=== PATIENT | female | born 1990 | race African-American/Black ===

== ENCOUNTER 2020-12-29 10:16 | Emergency (ER) | payer OTHER, SELFPAY ==
[2020-12-29 10:25] VITALS: BP 129/81; PULSE 72; RESP 16; TEMP 37.3; O2SAT 100
--- NOTE | 2020-12-29 11:09 | ED.FEMALEGU ---
HPI - Female Genitourinary General Chief complaint: Urogenital-Female Stated complaint: Possible Yeast Infection Time Seen by Provider: 12/29/20 11:09 Source: patient Mode of arrival: ambulatory Limitations: no limitations History of Present Illness HPI Narrative: Jeniffer Irvin is a 30 yo female with no PMH [facility] getting Flag[facility] for fungal infection from another provider and now is developing irritation in the vaginal area similar to yeast infection Related Data Allergies Allergy/AdvReac Type Severity Reaction Status Date / Time No Known Allergies Allergy Unverified 02/06/18 19:37 Review of Systems Review of Systems: Narrative: CONSTITUTIONAL: Denies fever, chills, sweats. EYES: Denies visual changes, redness, discharge. ENT: Denies rhinorrhea, congestion, sore throat, otalgia. CARDIOVASCULAR: Denies chest pain, palpitations, edema. RESPIRATORY: Denies dyspnea, wheezing, cough GASTROINTESTINAL: Denies abdominal pain, nausea, vomiting, diarrhea. GENITOURINARY: Denies dysuria, hematuria, abnormal discharge-has vaginal irritation SKIN: Denies rash or itching. NEUROLOGIC: Denies numbness, or focal weakness. PSYCHIATRIC: Denies anxiety or depression. PMFSH Past Medical History Medical History No acute medical problems Family History Family History (Updated 12/29/20 @ 11:10 by Coco Guerra CNP) Other No acute medical problems Social History Social History (Updated 12/29/20 @ 11:10 by Coco Guerra CNP) Smoking status: Never smoker Alcohol intake: current Gender identity (if verbalized by the patient): Female Comments At time of signature, I agree with nursing past medical, surgical, social and family history. There is no relevant family history pertinent to the presenting complaint. Exam Narrative: Exam Narrative: GENERAL: This is a well-nourished, well-developed patient, in mild distress. HEAD: normocephalic, atraumatic. EYES: Sclera clear/white. Vision is grossly intact. EARS: External ears normal, . Hearing grossly intact. NOSE: External nose normal without nasal discharge, nares without redness, no rhinorrhea. THROAT: Mucous membranes moist, NECK: Neck supple, non-tender CARDIOVASCULAR: Regular rate and rhythm without murmurs, gallops, or rubs. RESPIRATORY: Clear to auscultation. Breath sounds equal bilaterally. No wheezes, rales, or rhonchi. GASTROINTESTINAL: Abdomen soft, n SKIN: warm, intact with no suspicious lesions or rash, good texture and turgor. NEURO: awake, alert, and oriented to person, place and time. There were no obvious focal neurologic abnormalities. Steady gait EXTREMITIES: Normal range of motion. BACK: Nontender without deformity Course Course Emergency Course: Patient is on Flagyl about to finish tomorrow and is developing vaginal irritation is requesting something for yeast infection Start on Diflucan 150 mg 1 tomorrow and second tablet followed 3 days if necessary Vital Signs Vital signs: Vital Signs Temperature 99.1 F 12/29/20 10:25 Pulse Rate 72 12/29/20 10:25 Respiratory Rate 16 12/29/20 10:25 Blood Pressure 129/81 12/29/20 10:25 Pulse Oximetry 100 12/29/20 10:25 Temperature 99.1 F 12/29/20 10:25 Pulse Rate 72 12/29/20 10:25 Respiratory Rate 16 12/29/20 10:25 Blood Pressure 129/81 12/29/20 10:25 Pulse Oximetry 100 12/29/20 10:25 MDM - Female Genitourinary Differential Diagnosis Differential diagnosis: Likely bacterial vaginosis, vaginitis, cystitis and other Critical Care Time Critical Care Time Critical Care Time: No Discharge Plan Discharge Clinical Impression: Vaginal yeast infection Patient Disposition: Home, Self-Care Condition: Stable Instructions: Antibiotic Form, Yeast Infection (ED) Prescriptions: New fluconazole [Diflucan] 150 mg tablet 150 mg PO ONCE Qty: 2 RF: 0 Follow-up/Referrals: PHYSICIAN,
== END 2020-12-29 11:18 | disposition home or self-care (01) ==
PROVIDERS: Emergency Provider Nurse Practitioner
DX: B37.3 Candidiasis of vulva and vagina (principal)
CPT/HCPCS: 99213; G0463

== ENCOUNTER 2021-06-04 17:03 | Emergency (ER) | payer OTHER, SELFPAY ==
[2021-06-04 17:08] VITALS: BP 133/61; PULSE 70; RESP 16; TEMP 37.9; O2SAT 100
--- NOTE | 2021-06-04 17:26 | ED.FEMALEGU ---
HPI - Female Genitourinary General Chief complaint: Urogenital-Female Stated complaint: Urinary Problem Time Seen by Provider: 06/04/21 17:05 Source: patient Mode of arrival: ambulatory Limitations: no limitations History of Present Illness HPI Narrative: 30-year-old female presents to urgent care with complaints of urinary frequency and urgency for the past week. Patient reports that she has a history of urinary tract infections and her symptoms feel similar. Patient denies vaginal discharge, abdominal pain, flank pain, fever, bodies, chills, nausea, vomiting, diarrhea or concern for STDs. MD elicited complaint: UTI and other (Urinary urgency and frequency) Onset (ago): week(s) (1) Vaginal discharge: none Vaginal bleeding: none Urinary symptoms: Urgency and Frequency Exacerbating factors: none Relieving factors: none Associated symptoms: denies other symptoms Related Data Allergies Allergy/AdvReac Type Severity Reaction Status Date / Time No Known Allergies Allergy Unverified 06/04/21 17:09 Review of Systems Constitutional: Constitutional: Denies chills and Denies fatigue ENT: Denies sore throat Cardiovascular: Cardiovascular: Denies chest pain Respiratory: Respiratory: Denies cough Gastrointestinal: Gastrointestinal: Denies abdominal pain, Denies constipation, Denies diarrhea, Denies nausea and Denies vomiting Genitourinary: Genitourinary: Denies abnormal vaginal bleeding, Denies hematuria, Reports nocturia, Denies genital lesions, Denies pelvic pain, Denies flank pain, Denies urinary incontinence and Denies vaginal discharge Integumentary/Breasts: Skin/Breast: Denies rash PMFSH Past Medical History Medical History No acute medical problems Family History Family History Other No acute medical problems Social History Social History Smoking status: Never smoker Alcohol intake: current Gender identity (if verbalized by the patient): Female Comments At time of signature, I agree with nursing past medical, surgical, social and family history. There is no relevant family history pertinent to the presenting complaint. Exam Const: General: healthy appearing and no acute distress Orientation/consciousness: patient oriented x3 Neck: Neck: normal visual inspection Resp: Effort & Inspection: normal respiratory effort Auscultation: clear to auscultation bilaterally Cardio: Rate: regular rate Rhythm: regular rhythm GI: Inspection: non-distended GI Palp: Yes Soft to palpation, No Tenderness to palpation present (GI), No Guarding due to palpation present (GI), No Rigid due to palpation and No Rebound tenderness present Auscultation: normal bowel sounds : General: Yes bladder normal to palpation and Yes no CVA tenderness Skin: General skin exam: normal color Rashes: no rashes Neuro: General: patient oriented x3 and moves all extremities Psych: Appearance: grossly normal Mental Status: mental status grossly normal Affect: normal affect Attitude: cooperative Thought content: Yes Normal thought content present Course Vital Signs Vital signs: Vital Signs Temperature 37.9 C H 06/04/21 17:08 Pulse Rate 70 06/04/21 17:08 Respiratory Rate 16 06/04/21 17:08 Blood Pressure 133/61 06/04/21 17:08 Pulse Oximetry 100 06/04/21 17:08 Temperature 37.9 C H 06/04/21 17:08 Pulse Rate 70 06/04/21 17:08 Respiratory Rate 16 06/04/21 17:08 Blood Pressure 133/61 06/04/21 17:08 Pulse Oximetry 100 06/04/21 17:08 MDM - Female Genitourinary MDM Narrative Medical decision making narrative: Urine culture obtained sent to lab. Patient agrees take antibiotics as prescribed. Patient agrees to increase water intake. Patient agrees to proceed to emergency room if symptoms worsen Differential Diagnosis Differential cory
== END 2021-06-04 17:30 | disposition home or self-care (01) ==
PROVIDERS: Emergency Provider Nurse Practitioner Family; PCP Obstetrics & Gynecology
DX: N30.00 Acute cystitis without hematuria (principal)
CPT/HCPCS: 81003; 87086; 87088; 99213; G0463

== ENCOUNTER 2021-06-18 13:57 | Emergency (ER) | payer OTHER, SELFPAY ==
[2021-06-18 14:46] VITALS: BP 132/87; PULSE 105; RESP 14; TEMP 37.6; O2SAT 98
--- NOTE | 2021-06-18 16:42 | ED.URI ---
HPI - URI/Sore Throat General Chief Complaint: Upper Respiratory Infection Stated Complaint: Sore Throat Time Seen by Provider: 06/18/21 16:42 Source: patient, RN notes reviewed and old records reviewed Mode of arrival: ambulatory History of Present Illness HPI Narrative: 30 year old female who presents to [facility] care with complaints of sore throat, cough, chills body aches, fever on . Patient reports that she also had some diarrhea on the which has resolved. Patient states that she went to the ER on and had rapid COVID and Flu test which were both negative. Patient reports that she has been taking Tylenol for her symptoms is feeling a little better but continues with sore throat. Patient has not had COVID or Influenza vaccinations. MD elicited complaint: fever, cough, sore throat and rhinorrhea Treatments prior to arrival: acetaminophen Related Data Home Medications Medication Instructions Recorded Confirmed No Home Medications 06/18/21 06/18/21 Allergies Allergy/AdvReac Type Severity Reaction Status Date / Time No Known Allergies Allergy Verified 06/18/21 15:49 Review of Systems Review of Systems: CONSTITUTIONAL:Positive fever, chills, or sweats. EYES: Denies visual changes, redness, or discharge. ENT:Positive for rhinorrhea, congestion, sore throat, no otalgia. CARDIOVASCULAR: Denies chest pain, palpitations, or edema. RESPIRATORY: Positive for cough no dyspnea. GASTROINTESTINAL: Denies abdominal pain, nausea, vomiting, one episode of diarrhea. GENITOURINARY: Denies dysuria or hematuria. SKIN: Denies rash or itching. MUSCULOSKELETAL: Denies back pain, joint pain, body aches. NEUROLOGIC: Denies headache, numbness, or weakness. PSYCHIATRIC: Denies anxiety or depression. All systems reviewed & are unremarkable except as noted in HPI and below PMFSH Past Medical History Medical History (Updated 06/20/21 @ 09:36 by Norma Salas NP) Hx of migraines Surgical History Surgical History (Updated 06/20/21 @ 09:26 by Norma Salas NP) No history of previous surgery Family History Family History Other No acute medical problems Social History Social History (Updated 06/20/21 @ 09:26 by Norma Salas NP) Smoking status: Never smoker Alcohol intake: current Alcohol use details: social Substance use: never Living arrangements: alone Gender identity (if verbalized by the patient): Female Comments At time of signature, agree with nursing past medical, surgical, social and family history. There is no relevant family history pertinent to the presenting complaint Exam Narrative: GENERAL: Well-appearing, well-nourished, and in no acute distress. HEAD: Normocephalic, atraumatic. EYES: PERRLA and EOMI. ENT: Nares patent with clear rhinorrhea no epistaxis. Mucous membranes moist.TM's normal with good light reflex, throat red with no lesions or exudates no acute tonsil swelling NECK: Supple.no lymphadenopathy CHEST: Clear to auscultation. No respiratory distress.dry cough SAO2 98% on room air HEART: Regular rate and rhythm. No murmur heard. Normal peripheral pulses. ABDOMEN: Soft, nontender, nondistended, normal active bowel sounds. EXTREMITIES: Normal range of motion. No edema. SKIN: Warm, dry, no rash. NEURO: No focal deficits. Alert and oriented x3. Course Vital Signs Vital signs: Vital Signs Temperature 37.6 C H 06/18/21 14:46 Pulse Rate 105 H 06/18/21 14:46 Respiratory Rate 14 06/18/21 14:46 Blood Pressure 132/87 06/18/21 14:46 Pulse Oximetry 98 06/18/21 14:46 Temperature 37.6 C H 06/18/21 14:46 Pulse Rate 105 H 06/18/21 14:46 Respiratory Rate 14 06/18/21 14:46 Blood Pressure 132/87 06/18/21 14:46 Pulse Oximetry 98 06/18/21 14:46 MDM - URI/Sore Throat Differential Diagnosis Differential diagnosis: Likely upper respiratory infection, sinusitis, viral infec
== END 2021-06-18 17:04 | disposition home or self-care (01) ==
PROVIDERS: Emergency Provider Registered Nurse
DX: J02.9 Acute pharyngitis, unspecified (principal)
CPT/HCPCS: 87081; 87880; 99213; G0463

== ENCOUNTER 2021-09-09 13:43 | Emergency (ER) | payer OTHER, SELFPAY ==
[2021-09-09 13:46] VITALS: BP 130/75; PULSE 58; RESP 14; TEMP 36.8; O2SAT 100
--- NOTE | 2021-09-09 13:46 | ED.FEMALEGU ---
HPI - Female Genitourinary General Chief complaint: Urogenital-Female Stated complaint: begining of UTI Time Seen by Provider: 09/09/21 13:47 Source: patient and RN notes reviewed History of Present Illness HPI Narrative: Patient is a 31-year-old female who presents the urgent care with complaints of a possible UTI. Patient states that since the she has had intermittent dysuria, suprapubic pressure, urgency and frequency. Patient has not taken anything [id number] for her symptoms. Denies any blood in the urine, vaginal discharge, back pain, abdominal pain, nausea, vomiting or fever. Patient states she has had some frequent UTIs recently and noticed that it is after her. . Patient has not followed up with the PCP or urologist. No other acute complaints. No acute distress noted. Patient aware of the plan of care. Some parts of this dictation were generated by voice recognition software and may contain typographical and/or grammatical inaccuracies. Related Data Allergies Allergy/AdvReac Type Severity Reaction Status Date / Time No Known Allergies Allergy Verified 09/09/21 13:53 Review of Systems Review of Systems: CONSTITUTIONAL: Denies fever, chills, or sweats. EYES: Denies visual changes, redness, or discharge. ENT: Denies rhinorrhea, congestion, sore throat, or otalgia. CARDIOVASCULAR: Denies chest pain, palpitations, or edema. RESPIRATORY: Denies cough or dyspnea. GASTROINTESTINAL: Denies abdominal pain, nausea, vomiting, or diarrhea. GENITOURINARY: Reports of dysuria, frequency, urgency and suprapubic pressure SKIN: Denies rash or itching. MUSCULOSKELETAL: Denies back pain, joint pain, or myalgia. NEUROLOGIC: Denies headache, numbness, or weakness. All other systems reviewed are negative, except as documented in HPI. [facility] Past Medical History Medical History (Updated 09/09/21 @ 14:08 by JOHN Reynolds) Hx of migraines Surgical History Surgical History (Updated 06/20/21 @ 09:26 by Norma Salas NP) No history of previous surgery Family History Family History Other No acute medical problems Social History Social History (Updated 06/20/21 @ 09:26 by Norma Salas NP) Smoking status: Never smoker Alcohol intake: current Alcohol use details: social Substance use: never Gender identity (if verbalized by the patient): Female Comments At the time of my signature, I reviewed and agree with the nursing past medical, surgical, social, and family history. There is no relevant family history pertinent to the patient complaint. Exam Narrative: GENERAL: This is a well-nourished, well-developed patient, in no apparent distress. HEAD: normocephalic, atraumatic. EYES: PERRL. Sclera clear/white. Vision is grossly intact. EARS: External ears normal NOSE: External nose normal with no obvious nasal discharge, nares without redness, no rhinorrhea. THROAT: Mucous membranes moist, posterior pharynx clear. NECK: Neck supple CARDIOVASCULAR: Regular rate and rhythm without murmurs, gallops, or rubs. RESPIRATORY: Clear to auscultation. Breath sounds equal bilaterally. No wheezes, rales, or rhonchi. GASTROINTESTINAL: Abdomen soft, non-tender, nondistended. SKIN: warm, intact with no suspicious lesions or rash, good texture and turgor. NEURO: awake, alert, and oriented to person, place and time. There were no obvious focal neurologic abnormalities. EXTREMITIES: No clubbing, cyanosis, or edema. BACK: Negative bilateral CVA tenderness Course Course Level of Care: Express Care Visit Vital Signs Vital signs: Vital Signs Temperature 98.2 F 09/09/21 13:46 Pulse Rate 58 L 09/09/21 13:46 Respiratory Rate 14 09/09/21 13:46 Blood Pressure 130/75 09/09/21 13:46 Pulse Oximetry 100 09/09/21 13:46 Temperature 98.2 F 09/09/21 13:46 Pulse Rate 58 L 09/09/21 13:46 Respiratory Rate 14 09/09/21 13:46 Blood P
== END 2021-09-09 14:14 | disposition home or self-care (01) ==
PROVIDERS: Emergency Provider Nurse Practitioner Family
DX: N39.0 Urinary tract infection, site not specified (principal)
CPT/HCPCS: 81003; 87077; 87086; 87186; 99213; G0463

== ENCOUNTER 2021-11-23 18:31 | Emergency (ER) | payer OTHER, SELFPAY ==
--- NOTE | 2021-11-23 18:38 | ED.FEMALEGU ---
HPI - Female Genitourinary General Chief complaint: Urogenital-Female Stated complaint: poss uti Time Seen by Provider: 11/23/21 19:18 Source: patient and RN notes reviewed Mode of arrival: ambulatory Limitations: no limitations History of Present Illness HPI Narrative: 31-year-old female presents with concern for urinary tract infection. Reports she was treated on November 08 for a UTI with her primary care doctor. Reports she took Macrobid, finished antibiotics. Reports symptoms resolved but 2 days ago returned. She reports dysuria, frequency, pressure. She reports she took Azo at 1:00 today. She denies fever, body aches, chills, sweats, back pain, abdominal pain, nausea or vomiting. She denies abnormal vaginal discharge or bleeding. MD elicited complaint: UTI Related Data Allergies Allergy/AdvReac Type Severity Reaction Status Date / Time No Known Allergies Allergy Verified 09/09/21 13:53 Review of Systems Review of Systems: CONSTITUTIONAL: Denies malaise, chills, sweats, or fever. CARDIOVASCULAR: Denies chest pain, palpitations, or edema. RESPIRATORY: Denies cough or dyspnea. GASTROINTESTINAL: Denies abdominal pain, nausea, vomiting, diarrhea GENITOURINARY: Reports dysuria, frequency, urgency, suprapubic pressure. Denies flank pain or hematuria. SKIN: Denies rash or itching. MUSCULOSKELETAL: Denies back pain or myalgia. All systems reviewed & are unremarkable except as noted in HPI and below PMFSH Past Medical History Medical History (Updated 11/23/21 @ 19:24 by Mariel Morales NP) Hx of migraines Surgical History Surgical History (Updated 06/20/21 @ 09:26 by Norma Salas NP) No history of previous surgery Family History Family History Other No acute medical problems Social History Social History (Updated 06/20/21 @ 09:26 by Norma Salas NP) Smoking status: Never smoker Alcohol intake: current Alcohol use details: social Substance use: never Gender identity (if verbalized by the patient): Female Comments At time of signature, agree with nursing past medical, surgical, social and family history. There is no relevant family history pertinent to the presenting complaint Exam Narrative: GENERAL: Well-appearing, well-nourished, and in no acute distress. HEAD: Normocephalic. EYES: PERRLA, conjunctivae clear. NECK: Supple. No lymphadenopathy CHEST: Clear to auscultation. No respiratory distress. HEART: Regular rate and rhythm. ABDOMEN: Soft, nontender upon palpation, nondistended, normal active bowel sounds, no palpable or pulsatile masses, no guarding. No CVA tenderness SKIN: Warm, dry, no rash. NEURO: Alert and oriented x3. PSYCH: Normal mood and affect Course Course Emergency Course: Patient is aware of diagnosis, understands and agrees to treatment plan. Anticipatory guidance given. Patient agrees to follow-up as directed and is aware of reasons to seek care at the emergency department. Portions of this record may have been created with voice recognition software Level of Care: Express Care Visit Vital Signs Vital signs: Reviewed. MDM - Female Genitourinary MDM Narrative Medical decision making narrative: Exam findings and UA show no acute concerns or changes; patient is non-toxic appearing and is in no distress. Patient is appropriate for outpatient treatment and follow-up. Differential Diagnosis Differential diagnosis: Likely urinary tract infection and cystitis Critical Care Time Critical Care Time Critical Care Time: No Discharge Plan Discharge Clinical Impression: Urinary tract infection Patient Disposition: Home, Self-Care Condition: Stable Instructions: Antibiotic Form, Urinary Tract Infection in Women (ED) Additional Instructions: We will send a urine culture to the lab; if the culture identifies an organism that the prescribed antibiotic will not treat, you will receive a phone
[2021-11-23 18:46] VITALS: BP 136/78; PULSE 67; RESP 20; TEMP 36.7; O2SAT 100
== END 2021-11-23 19:30 | disposition home or self-care (01) ==
PROVIDERS: Emergency Provider Nurse Practitioner
DX: N39.0 Urinary tract infection, site not specified (principal)
CPT/HCPCS: 81003; 87077; 87086; 87088; 87186; 99213; G0463

== ENCOUNTER 2022-04-20 18:05 | Emergency (ER) | payer OTHER, SELFPAY ==
[2022-04-20 18:11] VITALS: BP 122/71; PULSE 73; RESP 18; TEMP 36.4; O2SAT 100
--- NOTE | 2022-04-20 18:30 | ED.EYEPROB ---
HPI - Eye Problem General Chief complaint: Eye Problems Stated complaint: Eye Problem Time Seen by Provider: 04/20/22 18:20 Source: patient, RN notes reviewed and old records reviewed Mode of arrival: ambulatory Limitations: no limitations History of Present Illness HPI Narrative: 31 year old female presents to [facility] care with complaints of left eye drainage, redness with irritation, and itchiness of left eye which started today. Patient reports that she does wear contacts but threw the contacts away which were disposable and has been wearing her glasses.Patient denies any sharp pain to her eyes today but it is itchy, denies any change in vision or any sharp pain to her eyes. Patient denies any feelings of sharp pain to her eyes. Patient's visual acuity bilateral eyes 20/25 with glasses. chief complaint: eye redness Onset (ago): day(s) (since this morning) Onset description: gradual Duration: constant Location: left eye Eye Symptoms: redness, itching and discharge Related Data Allergies Allergy/AdvReac Type Severity Reaction Status Date / Time No Known Allergies Allergy Verified 04/20/22 18:40 Review of Systems Review of Systems: CONSTITUTIONAL: Denies fever, chills, or sweats. EYES: Denies visual changes, positive for redness, or discharge and itchy left eye. ENT: Denies rhinorrhea, congestion, sore throat, or otalgia. CARDIOVASCULAR: Denies chest pain, palpitations, or edema. RESPIRATORY: Denies cough or dyspnea. GASTROINTESTINAL: Denies abdominal pain, nausea, vomiting, or diarrhea. GENITOURINARY: Denies dysuria or hematuria. SKIN: Denies rash or itching. MUSCULOSKELETAL: Denies back pain, joint pain, or myalgia. NEUROLOGIC: Denies headache, numbness, or weakness. PSYCHIATRIC: Denies anxiety or depression. All systems reviewed & are unremarkable except as noted in HPI and below PMFSH Past Medical History Medical History (Updated 04/20/22 @ 18:40 by Norma Salas NP) Hx of migraines Surgical History Surgical History (Updated 06/20/21 @ 09:26 by Norma Salas NP) No history of previous surgery Family History Family History Other No acute medical problems Social History Social History (Updated 06/20/21 @ 09:26 by INDIRA Wakefield Smoking status: Never smoker Alcohol intake: current Alcohol use details: social Substance use: never Gender identity (if verbalized by the patient): Female Comments At time of signature, agree with nursing past medical, surgical, social and family history. There is no relevant family history pertinent to the presenting complaint Exam Narrative: GENERAL: Well-appearing, well-nourished, and in no acute distress. HEAD: Normocephalic, atraumatic. EYES: PERRLA and EOMI. Upper and lower eyelids unremarkable. No periorbital cellulitis noted. Sclera and conjunctivae injected left eye ENT: Nares clear, no rhinorrhea or epistaxis. Mucous membranes moist. NECK: Supple.no lymphadenopathy CHEST: Clear to auscultation. No respiratory distress. SAO2 100% on room air. HEART: Regular rate and rhythm. No murmur heard. Normal peripheral pulses. SKIN: Warm, dry, no rash. NEURO: No focal deficits. Alert and oriented x3. Course Course Emergency Course: Patient is aware of diagnosis, understands and agrees to treatment plan. Anticipatory guidance given. Patient agrees to follow-up as directed and is aware of reasons to seek care at the emergency department. Portions of this record may have been created with voice recognition software Level of Care: Express Care Visit Vital Signs Vital signs: Vital Signs Temperature 36.4 C 04/20/22 18:11 Pulse Rate 73 04/20/22 18:11 Respiratory Rate 18 04/20/22 18:11 Blood Pressure 122/71 04/20/22 18:11 Pulse Oximetry 100 04/20/22 18:11 Oxygen Delivery Room Air 04/20/22 18:11 Temperature 36.4 C 04/20/22 18:11 Pulse Rate 73 04/20/22 18:1
== END 2022-04-20 18:45 | disposition home or self-care (01) ==
PROVIDERS: Emergency Provider Registered Nurse; PCP Nurse Practitioner Family
DX: H10.9 Unspecified conjunctivitis (principal)
CPT/HCPCS: 99213; G0463

== ENCOUNTER 2022-07-23 19:04 | Emergency (ER) | payer OTHER, SELFPAY ==
[2022-07-23 19:09] VITALS: BP 136/89; PULSE 76; RESP 20; TEMP 36.9; O2SAT 100
--- NOTE | 2022-07-23 19:20 | ED.FEMALEGU ---
HPI - Female Genitourinary General Chief complaint: Urogenital-Female Stated complaint: poss uti Time Seen by Provider: 07/23/22 19:22 Source: patient and RN notes reviewed Mode of arrival: ambulatory Limitations: no limitations History of Present Illness HPI Narrative: 31 year old female here with one day onset of dysuria and frequency. Says this feels similar to when she has a UTI in the past. Denies blood in the urine, discharge, fever, chills, malaise, or new sexual partners. Denies concerns for STD. LMP 07/08/22. Has been pushing fluids but has not tried any OTC medications. Recently purchased lavender scented toilet paper which she believes has correlated with symptom onset. Related Data Allergies Allergy/AdvReac Type Severity Reaction Status Date / Time No Known Allergies Allergy Verified 04/20/22 18:40 Review of Systems Review of Systems: CONSTITUTIONAL: Denies body aches, fever, chills, or sweats. CARDIOVASCULAR: Denies chest pain, palpitations, or edema. RESPIRATORY: Denies cough or dyspnea. GASTROINTESTINAL: Denies abdominal pain, nausea, vomiting, or diarrhea. GENITOURINARY: Reports dysuria, frequency, urgency. Denies hematuria, pelvic pain, or flank pain SKIN: Denies rash, itching, or wounds. MUSCULOSKELETAL: Denies back pain or myalgia. [facility] Past Medical History Medical History Hx of migraines Surgical History Surgical History No history of previous surgery Family History Family History Other No acute medical problems Social History Social History Smoking status: Never smoker Alcohol intake: current Alcohol use details: social Substance use: never Living arrangements: alone Gender identity (if verbalized by the patient): Female Comments At time of signature, I have reviewed and agree with nursing past medical, surgical, social and family history unless otherwise noted. Please see nursing chart for further information. There is no relevant family history pertinent to the presenting complaint Exam Narrative: GENERAL: Well-appearing and in no acute distress. HEAD: Normocephalic EYES: EOMI. ENT: Mucous membranes pink and moist. NECK: Normal AROM. Supple. CHEST: No respiratory distress. Clear to auscultation. HEART: Regular rate and rhythm. ABDOMEN: Soft, nontender, nondistended, normal active bowel sounds. No CVA tenderness SKIN: Warm, dry, no rash. Course Course Emergency Course: Patient is aware of diagnosis, understands and agrees to treatment plan. Anticipatory guidance given. Patient agrees to follow-up as directed and is aware of reasons to seek care at the emergency department. Portions of this record may have been created with voice recognition software Level of Care: Express Care Visit Vital Signs Vital signs: Vital Signs Temperature 98.5 F 07/23/22 19:09 Pulse Rate 76 07/23/22 19:09 Respiratory Rate 20 07/23/22 19:09 Blood Pressure 136/89 07/23/22 19:09 Pulse Oximetry 100 07/23/22 19:09 Oxygen Delivery Room Air 07/23/22 19:09 Temperature 98.5 F 07/23/22 19:09 Pulse Rate 76 07/23/22 19:09 Respiratory Rate 20 07/23/22 19:09 Blood Pressure 136/89 07/23/22 19:09 Pulse Oximetry 100 07/23/22 19:09 Oxygen Delivery Room Air 07/23/22 19:09 Reviewed MDM - Female Genitourinary MDM Narrative Medical decision making narrative: Reviewed results of urine specimen collection with patient and discussed timeframe to receive culture results. Encouraged increased fluid intake, avoid bladder irritants (scented toilet paper), excessive carbonation or caffeine. Advised supportive measures and signs/symptoms to go to the ER. Pt is appropriate for outpt treatment and f/u. Differential Diagnosis Diff
== END 2022-07-23 19:33 | disposition home or self-care (01) ==
PROVIDERS: Emergency Provider Nurse Practitioner Family; PCP Nurse Practitioner Family
DX: N39.0 Urinary tract infection, site not specified (principal)
CPT/HCPCS: 81003; 87077; 87086; 87186; 99213; G0463

== ENCOUNTER 2022-11-14 18:55 | Emergency (ER) | payer OTHER, SELFPAY ==
[2022-11-14 19:00] VITALS: BP 128/75; PULSE 64; RESP 18; TEMP 36.8; O2SAT 100
--- NOTE | 2022-11-14 19:02 | ED.FEMALEGU ---
HPI - Female Genitourinary General Chief complaint: Urogenital-Female Stated complaint: Vaginal Issue Time Seen by Provider: 11/14/22 19:02 Source: patient, RN notes reviewed and old records reviewed Mode of arrival: ambulatory Limitations: no limitations History of Present Illness HPI Narrative: 32-year-old female presents to the [facility] with itching, burning and thick white discharge yesterday. Has a history of UTIs, BV and yeast infection. States this feels like a yeast infection. No treatment prior to arrival Denies chest pain, abdominal pain. No nausea vomiting or diarrhea. Has no concerns for STDs. No urinary symptoms. Onset (ago): day(s) (1) Related Data Allergies Allergy/AdvReac Type Severity Reaction Status Date / Time No Known Allergies Allergy Verified 11/14/22 19:07 Review of Systems Review of Systems: All systems reviewed & are unremarkable except as noted in HPI and below Constitutional: Constitutional: Reports no additional constitutional complaints Eyes: Eyes: Reports no additional eye complaints ENT: Reports system reviewed and no additional complaints, except as documented Cardiovascular: Cardiovascular: Reports no additional cardiovascular complaints, Denies chest pain and Denies dyspnea Respiratory: Respiratory: Reports no additional respiratory complaints, Denies chest congestion, Denies cough and Denies dyspnea Gastrointestinal: Gastrointestinal: Reports no additional gastrointestinal complaints, Denies abdominal pain, Denies nausea and Denies vomiting Genitourinary: Genitourinary: Reports as per HPI Musculoskeletal: Musculoskeletal: Reports no additional musculoskeletal complaints Integumentary/Breasts: Skin/Breast: Reports system reviewed and no additional complaints, except as docu Neurologic: Reports system reviewed and no additional complaints, except as documented Psychiatric: Psychiatric: Reports no additional psychiatric complaints Allergic/Immunologic: Allergic/Immunologic: Reports no additional allergic/immunologic complaints [facility] Past Medical History Medical History Hx of migraines Surgical History Surgical History No history of previous surgery Family History Family History Other No acute medical problems Social History Social History Smoking status: Never smoker Alcohol intake: current Alcohol use details: social Substance use: never Living arrangements: alone Gender identity (if verbalized by the patient): Female Comments At the time of my signature, I reviewed and agree with the nursing past medical, surgical, social, and family history. There is no relevant family history pertinent to the patient complaint. Exam Const: General: cooperative, healthy appearing, comfortable, no acute distress, well developed, alert and well nourished Nutritional Appearance: well nourished Orientation/consciousness: patient oriented x3 Limitations: no limitations HENMT: Head: normal to inspection Ears: hearing grossly normal bilaterally and external ears normal Face/Nose/Sinus: Normal external nose present, Normal nares present, Normal nasal mucous membranes and turbinates present and normal facial exam Face and sinus: normal facial exam Eyes: General: appearance normal, both eyes and all related structures Alignment and Position: alignment normal Periorbital: periorbital findings normal Pupils: Equal, round and reactive pupils present EOM: EOMs intact bilaterally Neck: Neck: normal visual inspection, full ROM, no lymphadenopathy and no meningeal signs Chest: Chest palpation & inspection: normal inspection of the chest Resp: Effort & Inspection: normal respiratory effort and able to speak in complete sentences Auscultation: clear to ausc
== END 2022-11-14 19:15 | disposition home or self-care (01) ==
PROVIDERS: Emergency Provider Nurse Practitioner; PCP Nurse Practitioner Family
DX: B37.31 Acute candidiasis of vulva and vagina (principal)
CPT/HCPCS: 99213; G0463

== ENCOUNTER 2024-03-04 12:00 | Emergency (ER) | payer OTHER, SELFPAY ==
[2024-03-04 12:06] VITALS: BP 119/75; PULSE 65; RESP 16; TEMP 36.4; O2SAT 100
--- NOTE | 2024-03-04 12:22 | ED.SKABFB ---
HPI - Skin/Abscess/Foreign Bdy General Chief complaint: Skin/Abscess/Foreign Body Stated complaint: Eczema Time Seen by Provider: 03/04/24 12:15 Source: patient, RN notes reviewed and old records reviewed Mode of arrival: ambulatory Limitations: no limitations History of Present Illness HPI narrative: 33-year-old female to Express Care for complaint of rash to bilateral wounds and neck for 1.5 weeks. Patient reports history of eczema and states she is having a flare-up. Patient has attempted to treat at home with Benadryl p.o. and Benadryl cream without relief. Patient reports using prescription steroid creams in the past with successful results. Patient resting comfortably in exam room in no acute distress. Related Data Allergies Allergy/AdvReac Type Severity Reaction Status Date / Time No Known Allergies Allergy Verified 03/04/24 12:11 Review of Systems Review of Systems: All systems reviewed & are unremarkable except as noted in HPI and below Constitutional: Constitutional: Reports no additional constitutional complaints Eyes: Eyes: Reports no additional eye complaints ENT: Reports system reviewed and no additional complaints, except as documented Cardiovascular: Cardiovascular: Reports no additional cardiovascular complaints, Denies chest pain and Denies dyspnea Respiratory: Respiratory: Reports no additional respiratory complaints, Denies cough and Denies dyspnea Musculoskeletal: Musculoskeletal: Reports no additional musculoskeletal complaints Integumentary/Breasts: Skin/Breast: Reports as per HPI and Reports rash ( Bilateral arms, posterior neck) Neurologic: Reports system reviewed and no additional complaints, except as documented Psychiatric: Psychiatric: Reports no additional psychiatric complaints PMFSH Past Medical History Medical History Hx of migraines Surgical History Surgical History No history of previous surgery Family History Family History Other No acute medical problems Social History Social History Smoking status: Never smoker Alcohol intake: current Alcohol use details: social Substance use: never Living arrangements: alone Gender identity (if verbalized by the patient): Female Comments At the time of my signature, I reviewed and agree with the nursing past medical, surgical, social, and family history. There is no relevant family history pertinent to the patient complaint. Exam Const: General: cooperative, healthy appearing, comfortable, no acute distress, alert and well nourished Nutritional Appearance: well nourished Orientation/consciousness: patient oriented x3 Limitations: no limitations HENMT: Head: normal to inspection Ears: external ears normal Face/Nose/Sinus: Normal external nose present, Normal nares present, normal facial exam, No erythema and No edema Face and sinus: normal facial exam, no erythema and no edema Mouth: Yes Normal oral and palatal mucosa present Eyes: General: appearance normal, both eyes and all related structures Neck: Neck: normal visual inspection, full ROM and no meningeal signs Chest: Chest palpation & inspection: normal inspection of the chest Resp: Effort & Inspection: normal respiratory effort and able to speak in complete sentences Cardio: Jugular venous distension: no JVD Back/Spine/Pelvis: Cervical Spine: cervical ROM normal Skin: General skin exam: normal color, turgor normal and rashes Other: dry, erythematous rash to bilateral ACs and posterior neck. Neuro: General: patient oriented x3, gait normal, moves all extremities and no meningeal signs Speech: normal speech Gait exam (Neuro): Normal gait present Extrem: General: normal to inspection, full ROM and c
== END 2024-03-04 12:39 | disposition home or self-care (01) ==
PROVIDERS: Emergency Provider Nurse Practitioner Family
DX: L30.9 Dermatitis, unspecified (principal)
CPT/HCPCS: 99213; G0463

== ENCOUNTER 2024-06-28 11:23 | Emergency (ER) | payer OTHER, SELFPAY ==
[2024-06-28 11:28] VITALS: BP 120/70; PULSE 65; RESP 18; TEMP 36.4; O2SAT 100
--- NOTE | 2024-06-28 11:39 | ED.FEMALEGU ---
HPI - Female Genitourinary General Chief complaint: Urogenital-Female Stated complaint: poss UTI Time Seen by Provider: 06/28/24 11:30 Source: patient, RN notes reviewed and old records reviewed Mode of arrival: ambulatory Limitations: no limitations History of Present Illness HPI Narrative: 33 year old female who presents to [facility] care with complaints of urinary pressure, suprapubic discomfort, urinary frequency, urine noted to be cloudy with blood noted in her urine this morning. Patient reports that she does have history of past urinary tract infections. Patient report that she has no fevers noted, reports no vaginal discharge or any concern for STD's. MD elicited complaint: UTI Pertinent past history: other (past UTI) Onset (ago): day(s) (2) Location of symptoms: suprapubic and urethra Severity scale (1-10): 5 Quality of pain: aching Vaginal discharge: none Vaginal bleeding: none Treatment prior to arrival: none Related Data Allergies Allergy/AdvReac Type Severity Reaction Status Date / Time No Known Allergies Allergy Verified 06/28/24 11:31 Review of Systems Review of Systems: CONSTITUTIONAL: Denies fever, chills, or sweats. CARDIOVASCULAR: Denies chest pain, palpitations, or edema. RESPIRATORY: Denies cough or dyspnea. GASTROINTESTINAL: reports suprapubic abdominal discomfort, no nausea, vomiting, or diarrhea. GENITOURINARY: Reports dysuria, frequency, urgency. Denies flank pain, positive for hematuria. SKIN: Denies rash or itching. MUSCULOSKELETAL: Denies back pain or myalgia. Denies CVA tenderness NEUROLOGIC: Denies headache All systems reviewed & are unremarkable except as noted in HPI and below [facility] Past Medical History Medical History Hx of migraines Surgical History Surgical History No history of previous surgery Family History Family History Other No acute medical problems Social History Social History Smoking status: Never smoker Alcohol intake: current Alcohol use details: social Substance use: never Living arrangements: alone Gender identity (if verbalized by the patient): Female Comments At time of signature, agree with nursing past medical, surgical, social and family history. There is no relevant family history pertinent to the presenting complaint Exam Narrative: GENERAL: Well-appearing, well-nourished, and in no acute distress. HEAD: Normocephalic, atraumatic. NECK: Supple. no lymphadenopathy CHEST: Clear to auscultation. No respiratory distress.SAO2 100% on room air HEART: Regular rate and rhythm. No murmur heard. Normal peripheral pulses. ABDOMEN: Soft, tender lower abdomen, pressure with urination, nondistended, normal active bowel sounds. No CVA tenderness positive for blood in urine EXTREMITIES: Normal range of motion. No edema. SKIN: Warm, dry, no rash. NEURO: No focal deficits. Alert and oriented x3. Course Course Emergency Course: Patient is aware of diagnosis, understands and agrees to treatment plan.? Anticipatory guidance given.? Patient agrees to follow-up as directed and is aware of reasons to seek care at the emergency department. Portions of this record may have been created with voice recognition software Level of Care: Express Care Visit Vital Signs Vital signs: Vital Signs Temperature 36.4 C L 06/28/24 11:28 Pulse Rate 65 06/28/24 11:28 Respiratory Rate 18 06/28/24 11:28 Blood Pressure 120/70 06/28/24 11:28 Pulse Oximetry 100 06/28/24 11:28 Oxygen Delivery Room Air 06/28/24 11:28 Temperature 36.4 C L 06/28/24 11:28 Pulse Rate 65 06/28/24 11:28 Respiratory Rate 18 06/28/24 11:28 Blood Pressure 120/70 06/28/24 11:28 Pulse Oximetry 100 06/28/24 11:28 Oxygen Delivery Room Air 06/28/24 11:28 MDM - Female Genitourinary MDM Narrative Medical decision making narrative: Exam findings and UA show no acute concerns or changes; patient is non-toxic appearing and is in no distress.? Patient is appropriate for outpatient treatment and follow-up. Differential Diagnosis Differential diagnosis: Likely urinary tract infection and cystitis Medical Records Attestation: I reviewed the patient's medical records. Lab Data Attestation: I reviewed the patient's lab results. Lab results narrative: urine dip: A glucose negative, bilirubin negative, ketone negative, specific gravity greater than or equal to 1.030, blood 3+, pH 6.0. Protein 2+. Urobilinogen 0.2, nitrate negative, leukocyte 2+ Critical Care Time Critical Care Time Critical Care Time: No Discharge Plan Discharge Clinical Impression: UTI (urinary tract infection) Qualifiers: Urinary tract infection type: site unspecified Hematuria presence: with hematuria Qualified Code(s): N39.0 - Urinary tract infection, site not specified Patient Disposition: Home, Self-Care Condition: Stable Instructions: Antibiotic Form, Urinary Tract Infection in Women (ED) Additional Instructions: Increase fluids especially cranberry juice and water Avoid caffeine and carbonated beverages Antibiotic as directed Tylenol/ibuprofen for pain or fever Follow-up with her primary care provider if further problems or concerns Recheck if you have fever over 101, nausea and vomiting. If your symptoms persist, change or worsen significantly before you can contact your personal physician then please, without delay, go to the emergency department for further evaluation. Follow-up with PCP in 7-10 days or sooner if needed Patient Language: Upper Sorbian Prescriptions: New nitrofurantoin monohyd/m-cryst [Macrobid] 100 mg capsule 100 mg PO Q12H 7 Days Qty: 14 0RF Rx Instructions: must administer with a meal/food Follow-up/Referrals: PHYSICIAN NOT ON STAFF,NONSTAFF [Primary Care Provider] - Time of Disposition: 11:56 Quality John Coma Scale Eyes: Open Verbal: Oriented and Alert Motor: Follows Commands [place] Coma Total Score: 15
[2024-06-28 11:46] LABS: EDUAAPPEAR Cloudy; EDUABILI Negative (Negative); EDUABLOOD 3+ (Negative); EDUACOLOR1 Yellow; EDUAGLUCOSE Negative (Negative); EDUAKETONE Negative (Negative); EDUALEUKO 2+ (Negative); EDUANITRATE Negative (Negative); EDUAPROTEIN 2+ (Negative); EDUAUROBILI 0.2
== END 2024-06-28 12:00 | disposition home or self-care (01) ==
PROVIDERS: Emergency Provider Registered Nurse
DX: N39.0 Urinary tract infection, site not specified (principal)
CPT/HCPCS: 81003; 87086; 99213; G0463

== ENCOUNTER 2025-04-03 18:03 | Emergency (ER) | payer OTHER, SELFPAY ==
--- OUTSIDE RECORDS SUMMARY | 2024-09-17 04:00 | XMS_ITS ---
Author Organization [facility] Address [address] [place] [address] Care Team Providers Care Chief Orthoptist Name Role Phone Migration, Provider Unavailable Unavailable REASON FOR VISIT EMR-Sánchez Encounters Encounter Location Date Provider Diagnosis [facility] [place] [address] [place] [id number] 09/17/2024 Prov ider Migration Plan Of Treatment No Information Progress Notes * LUCINA QUEVEDODOB:1990 (34 yo Other)Acc No.[id number]:09/17/2024 Patient: Azael BUSTAMANTE LUCINA :1990 A ge:34 Y S ex:Unknown Address:[address], [place], [address] Subjective: * Chief Complaints: * E MR-Sánchez * * Date:
--- OUTSIDE RECORDS SUMMARY | 2024-09-18 04:00 | XMS_ITS ---
Author Organization [facility] Address [address] [place] [address] Care Team Providers Care Machine Turner Name Role Phone Migration, Provider Unavailable Unavailable REASON FOR VISIT EMR-Sánchez Encounters Encounter Location Date Provider Diagnosis [facility] [address] [place] [id number] 09/18/2024 Prov ider Migration Plan Of Treatment No Information Progress Notes * LUCINA QUEVEDODOB:1990 (34 yo Other)Acc No.[id number]:09/18/2024 Patient: Azael BUSTAMANTE LUCINA :1990 A ge:34 Y S ex:Unknown Address:[address], [place], [id number] Subjective: * Chief Complaints: * E MR-Sánchez * * Date:
--- OUTSIDE RECORDS SUMMARY | 2025-04-03 18:06 | XMS_ITS | Clinical Summary ---
Author Organization [facility] Address [address] [place] [address] Phone Care Team Providers Care Car Spotter Name Role Phone Deedee Davila NP Unavailable [phone] Brad Coronado MD Primary Care Provide r Sandhya Stephen MD Unavailable [phone] Allergies No known active allergies Medications pen needle, diabetic (UltiCare Pen Needle) 29 gauge x 1/2 needleIndications :Class 1 obesity due to excess calories without serious comorbidity with body mass index (BMI) of 33.0 to 33.9 in adult,Encounter for weight management Use daily 90 each 06/19/2023 Active Active Problems Problem Noted Date Diagnosed Date Encounter for weight management 06/22/2023 Class 1 obesity due to exces s calories without serious comorbidity with body mass index (BMI) of 33.0 to 33.9 in adult 06/19/2023 Assessment & Plan (06/22/2023 7:02 PM MILITARY TECHNOLOGY MANAGER): Wt Readings from Last 3 Encounters: 06/19/23 86.5 kg (190 lb 12.8 oz) 10/30/21 77.6 kg (171 lb) 06/17/21 75.8 kg (167 lb) Education on diet and exercise counseling provided at today's visit Anxiety and depression 01/18/2020 Low grade squamous intraepit h lesion on cytologic smear cervix (lgsil) 02/22/2019 Overview (02/22/2019): 01/06/19 - during - followed by [facility] - Jenn Antunez HAYDER - Dysmenorrhea 09/30/2017 Assessment & Plan (09/30/2017 3:59 PM CDT): Will have her stop her control pills. Counseled on using back up control such as condoms. Stay off control for a month and then may restart new pack. Encouraged to call heel shaper for evaluation. Will check CBC today Migraine without status migrainosus, not intract able 03/28/2016 Assessment & Plan (06/17/2021 11:30 AM MILITARY TECHNOLOGY MANAGER): Added metoprolol daily for migraine prevention, rizatriptan added for acute migraine symptoms. Follow-up appointment scheduled with PCP Dr. Coronado Manage your symptoms: Rest in a dark, quiet room. This will help decrease your pain. Sleep may also help relieve the pain. Apply ice to decrease pain. Use an ice pack, or put crushed ice in a plastic bag. Cover the ice pack with a towel and place it on your head where it hurts for 15 to 20 minutes every hour. Apply heat to decrease pain and muscle spasms. Use a small towel dampened with warm water or a heating pad, or sit in a warm bath. Apply heat on the area for 20 to 30 minutes every 2 hours. You may alternate heat and ice. Keep a migraine record. Write down when your migraines start and stop. Include your symptoms and what you were doing when a migraine began. Record what you ate or drank for 24 hours before the migraine started. Keep track of what you did to treat your migraine and if it worked. Follow up with your healthcare provider as directed: Bring your migraine record with you. Write down your questions so you remember to ask them during your visits. Prevent another migraine headache: Do not smoke. Nicotine and other chemicals in cigarettes and cigars can trigger a migraine and also cause lung damage. Ask your healthcare provider for information if you currently smoke and need help to quit. E-cigarettes or smokeless tobacco still contain nicotine. Talk to your healthcare provider before you use these products. Do not drink alcohol. Alcohol can trigger a migraine. It can also interfere with the medicines used to treat your migraine. Exercise regularly. Ask about the best exercise plan for you. Manage stress. Stress may trigger a migraine. Learn new ways to relax, such as deep breathing. Follow a sleep schedule. Go to bed and get up at the same time each day. Eat a variety of healthy foods. Healthy foods include fruit, vegetables, whole- grain breads, low-fat dairy products, beans, lean meats, and fish. Do not have foods or drinks that trigger your migraines. Shift work sleep disorder 03/28/2016 Resolved Problems Problem Noted Date Diagnosed Date Resolved Date Rash of face 07/31/2018 11/02/2018 Assessment & Plan (07/31/2018 2:56 PM MILITARY TECHNOLOGY MANAGER): Complete the prednisone as directed You may use Benadryl or Zyrtec for itching You can use an OTC hydrocortisone cream to soothe your skin topically Keep your skin cool & wear loose clothing to avoid becoming hot, which could increase the itching. If your rash is not getting better after finishing the steroids, please RTC or follow up w PCP If your symptoms worsen- go to ER Weight gain 06/29/2018 11/02/2018 Assessment & Plan (06/30/2018 9:05 PM MILITARY TECHNOLOGY MANAGER): Her believe some of this is water weight with her period. I gave her hydrochlorothiazide to take 3-5 days around her period. For bloating. Overweight (BMI 25.0-29.9) 02/05/2018 0 11/02/2018 Assessment & Plan (02/05/2018 5:47 PM CDT): BMI Follow-up includes: nutrition counseling and exercise counseling . She may continue the phentermine another 2 months. I then asked her to return for follow-up. Patient voiced understanding Of plan Of care and follow-up I checked their [place] [employer] sheet, and it was consistent with prescribed medications. PTSD (post-traumatic stress disorder) 08/19/2017 11/02/2018 Assessment & Plan (09/10/2017 3:54 PM CDT): Much improved. She is going to follow through with counseling. f/u prn Assessment & Plan (08/19/2017 1:57 PM MILITARY TECHNOLOGY MANAGER): Psychological condition is newly identified. Medication changes per orders. Referral to psychological counseling. Psychological condition will be reassessed at the next regular appointment. Lorazepam to take as needed for anxiety. Referred to counseling Obesity (BMI 30.0-34.9) 11/21/201610/20 Assessment & Plan (06/30/2018 9:06 PM MILITARY TECHNOLOGY MANAGER): BMI Follow-up includes: nutrition counseling She has been to managing manager.. She is due for labs. Will check insulin level and TSH as well as CMP and lipid panel Assessment & Plan (10/14/2017 3:42 PM CDT): BMI Follow-up includes: nutrition counseling, exercise counseling and education provided Will start phentermine. Have her f/u in 1 month for weight check and blood pressure check. . Assessment & Plan (07/06/2017 8:37 AM MILITARY TECHNOLOGY MANAGER): Obesity is worsening. Discussed the patient's BMI. The BMI is above average; BMI management plan is completed. Referred to managing manager. Discussed other problems such as weight watchers and medical weight loss facilities. Discussed contrave and how it works and directed to website for additional information/ patient assistance. F/u 2 months for recheck CD (contact dermatitis) 11/14/201609/20 Overview (11/21/2016): Contact dermatitis, unspecified contact dermatitis type, unspecified trigger Immunizations Immunization Administration Dates Next Due Influenza, Quadrivalent, Spl it, Preservative Free, Intramuscular 03/09/2019,07/06/2017,03/28/2016,03/28 Influenza, Unspecified 07/09/2022(Deferr ed: Patient Refused),04/04/2022(Deferred: Patient Refused),03/25/2022(Deferred: Patient Refused),06/17/2021(Deferred: Patient Refused),06/17/2021(Deferred: Patient Refused),04/29/2021(Deferred: Patient Refused),03/04/2021(Deferred: Patient Refused),02/23/2021(Deferred: Patient Refused),03/22/2018 Tdap 11/20/2021,11/05/2021,03/05/2019 Surgical History Surgery Date Site/Laterality Comments D&C FIRST TRIMESTER / TX INC OMPLETE / MISSED / SEPTIC / INDUCED 02/10/2019 Medical History Medical History Date Comments Hx Other Medical Headache, migra ine Anxiety Headache Rash of face 07/31/2018 Weight gain 06/29/2018 PTSD (post-traumatic stress disorder) 08/19/2017 Overweight (BMI 25.0-29.9) 02/05/2018 Obesity (BMI 30.0-34.9) 11/21/2016 Miscarriage 01/26/2019 Anxiety and depression 01/18/2020 Migraines Class 1 obesity due to exces s calories without serious comorbidity with body mass index (BMI) of 33.0 to 33.9 in adult 06/19/2023 Social History Tobacco Use Types Packs/Day Years Used Date Smoking Tobacco: Never Smokeless Tobacco: Never Tobacco Cessation:Counseling Given: No Alcohol Use Standard Drinks/Week Comments No 0 (1 standard drink = 0.6 oz pur e alcohol) PHQ-2 Answer Date Recorded PHQ-2 Total Score (If total score is 3 or more points, staff should administer the PHQ-9) 0 06/19/2023 Comments No Sex and Gender Information Value Date Recorded Sex Assigned at Not on file Legal Sex Female 11:04 AM MILITARY TECHNOLOGY MANAGER Gender Identity Female 10/21/2021 9:21 AM CDT Sexual Orientation Not on file Obstetrics History Para Term AB IAB SAB Ectopic Multiple Livin g Live Births 1 Date Outcome GA Total Labor Labor/2nd/3rd Weight Sex Type Anes PTL Magda A1 A5 Name Clin Last Filed Vital Signs Vital Sign Reading Time Taken Comments Blood Pressure 121/77 06/19/2023 10:57 AM MILITARY TECHNOLOGY MANAGER Pulse 62 06/19/2023 10:57 AM MILITARY TECHNOLOGY MANAGER Temperature 37 C (98.6 F) 06/19/2023 10:57 AM MILITARY TECHNOLOGY MANAGER Respiratory Rate 18 06/19/2023 10:5 7 AM MILITARY TECHNOLOGY MANAGER Oxygen Saturation 100% 06/19/2023 10: 57 AM MILITARY TECHNOLOGY MANAGER Inhaled Oxygen Concentration - - Weight 86.5 kg (190 lb 12.8 oz) 023 10:57 AM MILITARY TECHNOLOGY MANAGER Height 160 cm (5' 3) 06/19/2023 10:57 AM MILITARY TECHNOLOGY MANAGER Body Mass Index 33.8 06/19/2023 10:57 AM MILITARY TECHNOLOGY MANAGER Plan of Treatment Health Maintenance Due Date Last Done Comments Hepatitis C Screening 1990 Varicella Vaccines (1 of 2 - 13+ 2-dose series) 09/07/2003 Hepatitis B Screening 2008 HPV Vaccines (1 - 3-dose SCDM series) 2017 Cervical Cancer Screening 01/07/2020 01/06/2019 Regular Well Visit/Exam 18-64 01/03/2022 01/03/2021, 01/18/2020, 01/17/2019 Depression Screening 06/19/2024 06/19/2023, 10/30/2021, 06/17/2021, Additional history exists Influenza Vaccine (#1) 2025 9, 03/22/2018, 07/06/2017, Additional history exists DTaP/Tdap/Td Vaccine (4 - Td or Tdap) 11/21/2031 11/20/2021, 11/05/2021, 03/05/2019 Pneumococcal vaccine <65 Aged Out No longer eligible based on patient's age to complete this topic Procedures Procedure Name Priority Date/Time Associated Diagnosis Comments PAP SMEAR Routine 01/06/2019 from Last 3 Months or Most Recently Relevant to Health Maintenance Results * PAP SMEAR (01/06/2019) Pap smear Abnormal Historical Provider HEALTH MAINTENANCE Final Result from Last 3 Months or Most Recently Relevant to Health Maintenance Insurance [facility] [id number] Care Teams Car Spotter Relationship Specialty [place] [address] [address] PCP - General Family Medicine 04/15/19 Deedee Davila NP Family Medicine 11/02/18 [place] [address] [address] Consulting Physician Obstetrics and Gynecology 01/03/21
--- OUTSIDE RECORDS SUMMARY | 2025-04-03 18:07 | XMS_ITS | Clinical Summary ---
Author Organization [facility] Address [address] [place] [address] Phone Care Team Providers Care Double Head Machine Operator Name Role Phone Juliana, Sofyabrielle Sanchez APRN, ELECTRIC DISTRIBUTION CHECKER Primary Care Provider Bertha Das APRN, CONSTRUCTION FRAMER Unavailable [phone] Allergies No known active allergies Medications ondansetron (ZOFRAN-ODT) 4 MG TABLET DISPERSIBLEIndicati ons:Viral gastroenteritis Take 1 Tablet by mouth every 8 hours as needed for Nausea - 1st line. 10 Tablet 5 Active Atogepant (Qulipta) 60 MG TabletIndications:M igraine Take 1 Tablet by mouth nightly. Indications: Migraine Headache 30 Tablet 5 5 Active Ubrogepant (Ubrelvy) 100 MG TabletIndications:M igraine Take 1 tablet as needed for migraine. May repeat dose in 2 hours if needed. 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 Resolved Problems Problem Noted Date Diagnosed Date Resolved Date Over weight 03/28/2016 11/21/2016 Immunizations Immunization Administration Dates Next Due PUR FLU 3+ YRS PRES FREE QUAD IM 03/28/2016 TDAP Vaccine 11/05/2021 Social History Tobacco Use Types Packs/Day Years Used Date Smoking Tobacco: Never Smokeless Tobacco: Never Tobacco Cessation:Counseling Given: Not Answered Alcohol Use Standard Drinks/Week Comments Yes 0 (1 standard drink = 0.6 oz pur e alcohol) occasional Comments No Sex and Gender Information Value Date Recorded Sex Assigned at Not on file Legal Sex Female 9:18 PM CDT Gender Identity Not on file Sexual Orientation Not on file Last Filed Vital Signs Vital Sign Reading Time Taken Comments Blood Pressure 122/80 12/15/2024 10:27 AM CDT Pulse 86 12/15/2024 10:27 AM CDT Temperature 36.4 C (97.5 F) 12/15/2024 10:27 AM CDT Respiratory Rate 17 12/15/2024 10:27 AM CDT Oxygen Saturation 98% 12/15/2024 10:27 AM CDT Inhaled Oxygen Concentration - - Weight 77.7 kg (171 lb 6.4 oz) 12/15/2024 10:27 AM CDT Height 160 cm (5' 3) 12/15/2024 10:27 AM CDT Body Mass Index 30.36 12/15/2024 10:27 AM CDT Plan of Treatment Upcoming Encounters Date Type Department Care Team (Late st Contact Info) Description 06/19/2025 10:30 AM DOPE EDGER Office Visit [facility] - Neurology - [address] [place] [address] Bertha Das APRN, CONSTRUCTION FRAMER [address] [place] [address] Health Maintenance Due Date Last Done Comments Hepatitis C Virus (HCV) Screening 1990 Hepatitis B Immunization (1 of 3 - 19+ 3-dose series) 2009 Pap Smear 09/07/2011 Human Papillomavirus (HPV) Immunization (1 - 3-dose SCDM series) 2017 Cervical Cancer Screening (CCS) 2020 HPV/Cotest 2020 Influenza Immunization (#1) 02/20/202502/20, 03/22/2018, 07/06/2017, Additional history exists SARS-COV-2 Immunization ( season) 2025 Td Immunization Every 10 Years (Adults With 1 Tdap) 11/21/2031 11/20/2021, 11/05/2021, 03/05/2019 Respiratory Syncytial Virus (RSV) Immunization (Adult) (1 - 1-dose 75+ series) 2065 Meningococcal Immunization (ACWY) Aged Out No longer eligible based on patient's age to complete this topic Pneumococcal Immunization Combined Aged Out No longer eligible based on patient's age to complete this topic Rotavirus Immunization Aged Out No lo nger eligible based on patient's age to complete this topic Insurance [facility] Care Teams Double Head Machine Operator Relationship Specialty Start Date End Date Sofya Andrews APRN, ELECTRIC DISTRIBUTION CHECKER [address] [place] [address] PCP - General Advanced Practice Nurse 11/18/22 Bertha Das APRN, CONSTRUCTION FRAMER [address] [place] [address] Nurse Practitioner Advanced Practice Nurse 01/15/23
--- OUTSIDE RECORDS SUMMARY | 2025-04-03 18:07 | XMS_ITS | Clinical Summary ---
Author Organization [facility] [employer] Address [address] [place] [address] Care Team Providers Care Production Administrator Name Role Phone Unavailable Primary Care Provider Unavailabl e Source Comments [facility] [employer],non-owned Affiliates and Associated Physician Practices is amultiple site organization consisting of ambulatory clinics and hospital sitesin [place], [place], [place] and [place]. This disclosure is being madepursuant to the Care Everywhere program and may not contain all information available regarding this patient. Last updated 18.[employer] Allergies No known active allergies Medications * Be aware that medications may not be up to date on this document. Alwaysverify current medications with the patient. trimethoprim-po lymyxin B (POLYTRIM) 80741-3.1 UNIT/ML-% ophthalmic solution Instill 1 Drop into right eye every 3 hours 10 mL 0 01/29/2015 Active Social History Tobacco Use Types Packs/Day Years Used Date Smoking Tobacco: Never Smokeless Tobacco: Never Alcohol Use Standard Drinks/Week Comments Yes 0 (1 standard drink = 0.6 oz pur e alcohol) occ Comments No Sex and Gender Information Value Date Recorded Sex Assigned at Not on file Legal Sex Female 9:00 AM CELEBRITY MANAGER Gender Identity Not on file Sexual Orientation Not on file Last Filed Vital Signs Vital Sign Reading Time Taken Comments Blood Pressure 102/64 01/29/2015 1:41 PM CDT Pulse 79 01/29/2015 1:41 PM CDT Temperature 37 C (98.6 F) 01/29/2015 1:41 PM CDT Respiratory Rate 18 01/29/2015 1:41 PM CDT Oxygen Saturation 99% 01/29/2015 1:41 PM CDT Inhaled Oxygen Concentration - - Weight 69.4 kg (153 lb 1.6 oz) 01/29/2015 1:41 P M CDT Height 162.6 cm (5' 4) 01/29/2015 1:41 PM CDT Body Mass Index 26.28 01/29/2015 1:41 PM CDT Plan of Treatment Health Maintenance Due Date Last Done Comments HIV SCREENING 2005 HEPATITIS C SCREENING 09/01/2008 DTAP/TDAP/TD VACCINES (1 - Tdap) 2009 HEPATITIS B VACCINE (1 of 3 - 19+ 3-dose series) 2009 HPV VACCINE (1 - 3-dose SCDM series) 2017 DEPRESSION SCREENING 06/22/2024 COVID-19 VACCINE ( - 2023-2 5 season) 2025 INFLUENZA VACCINE (#1) 2025 8, 03/28/2016 ZOSTER VACCINE (1 of 2) 2040 HIB VACCINE Aged Out No longer eligi ble based on patient's age to complete this topic MENINGOCOCCAL (Group B) VACCINE SHARED DECISION-MAKING Aged Out No longer eligible based on patient's age to complete this topic MENINGOCOCCAL GROUPS A/C/Y/W VACCINE Aged Out No longer eligible b ased on patient's age to complete this topic PNEUMOCOCCAL VACCINE Aged Out No long er eligible based on patient's age to complete this topic Insurance [place] [employer] [facility] Address: [facility] [id number] [place] [phone]
--- OUTSIDE RECORDS SUMMARY | 2025-04-03 18:07 | XMS_ITS | Data Portability ---
Author Organization [facility] Sarah Bronson Address [address] [place] [address] Care Team Providers Care Rubber Down Name Role Phone [email or web address] Primary Care Provider [phone] Assessment Encounter Date Assessment Date Assessment LastModified by Organization Details LastModified Time 11/20/2023 11/20/2023 Pt's case was discussed w/resident. Documentation was reviewed,and I agree w/resident's note. Dr. Best [email or web address] Not available 11/21/2023 15:01:41 Plan of Treatment Reminders Order Date Submit Date Provider Last Modified By Organization Details Last Modified Time Details Appointments None recorded . Lab vaginal pathogen s panel, LELA+prob e, vaginal fluid 2024 025 [place], [address], [place], [address], 5 07:08:50 mycoplas ma genitali um DNA, qualitat marvin, PCR 2024 025 [place] [facility], [address], [address], [place], [address], 5 07:08:52 HIV 1 + 2, meaningf ul use set 2023 024 [place] [facility], [address], [address], [place], [address], 4 13:09:16 RPR (rapid plasma reagin), serum 2023 024 [facility], [address], [address], [place], [address], 4 13:09:15 HBsAg (hepatit is B surface Ag), EIA, serum 2023 024 [facility], [address], [address], [place], [address], 4 13:09:14 vaginal pathogen s panel, LELA+prob e, vaginal fluid 2023 024 [facility], [address], [address], [place], [address], 4 20:08:26 Hepatiti s C IgG Ab, qual, serum 2023 024 [facility], [address], [address], [place], [address], 4 13:09:13 vaginal pathogen s panel, LELA+prob e, vaginal fluid 2023 024 [facility], [address], [address], [place], [address], 4 16:13:38 Referral None recorded . Procedures None recorded . Surgeries None recorded . Imaging None recorded . Medication Orders Diflucan 150 mg tablet 2024 025 [facility] #[id number], [address], [place], [id number], 5 11:01:12 metronid azole 500 mg tablet 2024 025 [facility] #[id number], [address], [place], [id number], 5 11:01:[address] Menstrua l 500 mg-60 mg-15 mg tablet 2023 025 [facility], [address], [place], [id number], 11:12:18 metronid azole 500 mg tablet 2023 024 [id number], [address], [place], [id number], 14:00:31 fluconaz ole 150 mg tablet 2023 024 [id number], [address], [place], [id number], 11:11:37 Patient TargetsNo targets recorded. Patient Instructions Encounter Date Encounter Id Patient Instructions Last Modified By Organization Details Last Modified Time 11/20/2023 [id number] A healthy lifestyle: care instructions Not available 11/20/2023 14:02:08 abnormal Pap test: care instructions Not available 11/20/2023 14:52:11 colposcopy: before your procedure Not available 11/20/2023 14:52:11 01/21/2024 [id number] painful menstrua l cramps: care instructions [email or web address] Not available 01/21/2024 10:39:53 07/14/2024 [id number] Plan of care has been discussed with patient including expected therapeutic benefits and potential side effects of prescribed medication and treatments. Patient verbalizes understanding and is in agreement with the plan of care. Patient was instructed to keep all scheduled appointments and contact the clinic for any additional problems. [email or web address] Not available 08/17/2024 14:26:35 Reason for Referral None Reported. Results Created Date Observation Date Name Description Value Unit Range Abnormal Flag Note LastModifiedBy Organization Detail LastModifiedTime 09/16/19 24 09/17/2023 NUSWA B VAGIN ITIS PLUS (VG+) atopobium vaginae Low - 0 score Not Available [facility] ([facility]) [address] [facility], [place], [address], 09/18/2023 16:13:38 09/16/19 24 09/17/2023 NUA B VAGIN ITIS PLUS (VG+) bvab 2 Low - 0 score Not Available [facility] ([facility]) [address] [facility], [place], [address], 09/18/2023 16:13:38 09/16/19 24 09/17/2023 NUA B VAGIN ITIS PLUS (VG+) megasphaera 1 Low - 0 score Calcu late total score by enrico g the 3 indiv idual bacte rial vagin osis (BV) marke r score s toget her. Total score is inter prete d as follo ws: Total score 0-1: Indic ates the absen ce of BV. Total score 2: Indet ermin ate for BV. Addit ional clini rizwana data shoul d be evalu ated to estab dale a diagn osis. Total score 3-6: Indic ates the prese nce of BV. This test was devel oped and its perfo rmanc e malka cteri stics deter mined by [facility]. It has not been clear ed or appro candida by the Food and Drug Admin istra tion. Not Available [facility] ([facility]) [address] [facility], [place], [address], 09/18/2023 16:13:38 09/16/19 24 09/18/2023 NUA B VAGIN ITIS PLUS (VG+) john albicans, LELA Positi ve negati ve abnormal Not Available [facility] ([facility]) [address] [facility], [place], [address], 09/18/2023 16:13:38 09/16/19 24 09/18/2023 NUA B VAGIN ITIS PLUS (VG+) john glabrata, LELA Negati ve negati ve Not Available [facility] ([facility]) [address] [facility], [place], [address], 09/18/2023 16:13:38 09/16/19 24 09/18/2023 NUA B VAGIN ITIS PLUS (VG+) trich vag by LELA Negati ve negati ve Not Available [facility] ([facility]) [address] [facility], [place], [address], 09/18/2023 16:13:38 09/16/19 24 09/18/2023 NUA B VAGIN ITIS PLUS (VG+) chlamydia trachomatis, LELA Negati ve negati ve Not Available [facility] ([facility]) [address] [facility], [place], [address], 09/18/2023 16:13:38 09/16/19 24 09/18/2023 NUA B VAGIN ITIS PLUS (VG+) neisseria gonorrhoeae, LELA Negati ve negati ve Not Available [facility] ([facility]) [address] [facility], [place], [address], 09/18/2023 16:13:38 11/20/19 24 11/21/2023 HCV ANTIB MATEUSZ hep C virus Ab NON REACTI VE nonrea ctive HCV antib mateusz alone does not diffe renti ate betwe en previ ously resol candida infec tion and activ e infec tion. Equiv ocal and React marvin HCV antib mateusz resul ts shoul d be follo wed up with an HCV RNA test to suppo rt the diagn osis of activ e HCV infec tion. Not Available [facility] ([facility]) [address] [facility], [place], [address], 11/21/2023 13:09:13 11/20/19 24 11/21/2023 HBSAG SCREE N HBsAg screen NEGATI VE negati ve Not Available [facility] ([facility]) [address] [facility], [place], [address], 11/21/2023 13:09:14 11/20/19 24 11/21/2023 RPR, RFX QN RPR/C ONFIR M TP RPR NON REACTI VE nonrea ctive Not Available [facility] ([facility]) [address] [facility], [place], [address], 11/21/2023 13:09:15 11/20/19 24 11/21/2023 HIV AB/P2 4 AG WITH REFLE X HIV Ab/P24 Ag screen NON REACTI VE nonrea ctive HIV Negat marvin HIV-1 /HIV- 2 antib odies and HIV-1 p24 antig en were NOT detec caity. There is no labor atory evide nce of HIV infec tion. Not Available [facility] ([facility]) [address] [facility], [place], [address], 11/21/2023 13:09:16 11/20/19 24 11/22/2023 NUA B VAGIN ITIS PLUS (VG+) atopobium vaginae LOW - 0 score Not Available [facility] ([facility]) [address] [facility], [place], [address], 11/23/2023 20:08:26 11/20/19 24 11/22/2023 NUA B VAGIN ITIS PLUS (VG+) bvab 2 LOW - 0 score Not Available [facility] ([facility]) [address] [facility], [place], [address], 11/23/2023 20:08:26 11/20/19 24 11/22/2023 NUA B VAGIN ITIS PLUS (VG+) megasphaera 1 LOW - 0 score Calcu late total score by enrico g the 3 indiv idual bacte rial vagin osis (BV) marke r score s toget her. Total score is inter prete d as follo ws: Total score 0-1: Indic ates the absen ce of BV. Total score 2: Indet ermin ate for BV. Addit ional clini rizwana data shoul d be evalu ated to estab dale a diagn osis. Total score 3-6: Indic ates the prese nce of BV. Not Available [facility] ([facility]) [address] [facility], [place], [address], 11/23/2023 20:08:26 11/20/19 24 11/22/2023 NUSWA B VAGIN ITIS PLUS (VG+) john albicans, LELA NEGATI VE negati ve Not Available [facility] ([facility]) [address] [facility], [place], [address], 11/23/2023 20:08:26 11/20/19 24 11/22/2023 NUSWA B VAGIN ITIS PLUS (VG+) john glabrata, LELA NEGATI VE negati ve Not Available [facility] ([facility]) [address] [facility], [place], [address], 11/23/2023 20:08:26 11/20/19 24 11/23/2023 NUA B VAGIN ITIS PLUS (VG+) trich vag by LELA NEGATI VE negati ve Not Available [facility] ([facility]) [address] [place], [address], 11/23/2023 20:08:26 11/20/19 24 11/23/2023 NUA B VAGIN ITIS PLUS (VG+) chlamydia trachomatis, LELA NEGATI VE negati ve Not Available [facility] ([facility]) [address] [place], [address], 11/23/2023 20:08:26 11/20/19 24 11/23/2023 NUSWA B VAGIN ITIS PLUS (VG+) neisseria gonorrhoeae, LELA NEGATI VE negati ve Not Available [facility] ([facility]) [address] [place], [address], 11/23/2023 20:08:26 07/26/19 25 07/29/2024 NUSWA B VAGIN ITIS PLUS (VG+) trich vag by LELA NEGATI VE negati ve Not Available [facility] ([facility]) [address] [facility], [place], [address], 07/31/2024 07:08:50 07/26/19 25 07/29/2024 NUA B VAGIN ITIS PLUS (VG+) chlamydia trachomatis, LELA NEGATI VE negati ve Not Available [facility] ([facility]) [address] [facility], [place], [address], 07/31/2024 07:08:50 07/26/19 25 07/29/2024 NUA B VAGIN ITIS PLUS (VG+) neisseria gonorrhoeae, LELA NEGATI VE negati ve Not Available [facility] ([facility]) [address] [facility], [place], [address], 07/31/2024 07:08:50 07/26/19 25 07/30/2024 NUA B VAGIN ITIS PLUS (VG+) atopobium vaginae LOW - 0 score Not Available [facility] ([facility]) [address] [facility], [place], [address], 07/31/2024 07:08:50 07/26/19 25 07/30/2024 NUA B VAGIN ITIS PLUS (VG+) bvab 2 LOW - 0 score Not Available [facility] ([facility]) [address] [place], [address], 07/31/2024 07:08:50 07/26/19 25 07/30/2024 NUA B VAGIN ITIS PLUS (VG+) megasphaera 1 LOW - 0 score Calcu late total score by enrico g the 3 indiv idual bacte rial vagin osis (BV) marke r score s toget her. Total score is inter prete d as follo ws: Total score 0-1: Indic ates the absen ce of BV. Total score 2: Indet ermin ate for BV. Addit ional clini rizwana data shoul d be evalu ated to estab dale a diagn osis. Total score 3-6: Indic ates the prese nce of BV. Not Available [facility] ([facility]) [address] [place], [address], 07/31/2024 07:08:50 07/26/19 25 07/30/2024 NUSWA B VAGIN ITIS PLUS (VG+) john albicans, LELA NEGATI VE negati ve Not Available [facility] ([facility]) [address] [place], [address], 07/31/2024 07:08:50 07/26/19 25 07/30/2024 NUSWA B VAGIN ITIS PLUS (VG+) john glabrata, LELA NEGATI VE negati ve Not Available [facility] ([facility]) [address] [place], [address], 07/31/2024 07:08:50 07/26/19 25 07/29/2024 M GENIT ALIUM LELA, SWAB mycoplasma genitalium LELA NEGATI VE negati ve Not Available [facility] ([facility]) [address] [place], [address], 07/31/2024 07:08:52 Result Notes None recorded. Problems Name Problem SNOMED Code Status Onset Date Resolution Date Notes Provider Name and Address Organization Details Recorded Time Bacterial vaginosis 246048074 Active Liya garcia, [place] - [facility] 6 15:24:21 Vaginal discharge 412305974 Active Liya Lamas null, [place] - [facility] 6 15:20:02 Migraine without aura 06978138 Active 2021 SOFYA WU NP Attn: Cy g,[address] [facility], [place], [address], [place] - [facility] 2 20:16:40 Night sweats 63440959 Active 2022 SOFYA WU NP Attn: Cy g,[address] [facility], [place], [address], [place] [facility] 3 10:17:30 Obesity 841540122 Active 2022 SOFYA WU NP Attn: Cy amaya,[address] [facility], [place], [address], [facility] - [facility] 3 10:17:46 Vulvovaginit is 12814971 Active 2023 john x2 Eric Cedeño MD Attn: Cy amaya,[address] [facility], [place], [address], [facility] - [facility] 4 14:08:14 Problem Notes Documentation Provider Name and Address Organization Details Recorded Time Neurologist Consult Note : This document (1 of 1) was received from [email or web address] on 12/19/2024 through Direct Message along with the following message body content: Patient Name: JENIFFER QUEVEDO. Patient : 1990. Patient . Sisi Jon [facility], [place] - [facility] 12/20/2024 10:44:47 Procedures Surgical History Date Name Laterality Status Provider Name and Address Organization Details Recorded Time 3 Date of Last Pap Smear completed KEMAR Espinoza [facility] 04/08/2023 09:45:39 8 Colposcopy completed Jorge Aquino MD Attn: Accounting,[address] [facility], [place], [address], [facility] - [facility] 05/21/2018 13:05:50 7 Colposcopy completed America Will POLO Attn: Accounting,[address] [facility], [place], [address], [facility] - [facility] 02/25/2017 14:54:16 7 Colposcopy completed Maria T Fuentes [place] - [facility] 02/25/2017 14:12:10 Imaging Results None recorded. Procedure Notes None recorded. Medical Equipment None Reported. Allergies No known drug allergies Medications Name Sig Start Date Stop Date Status Note LastModified by Organization Details LastModified Time cyclobenzap rine 10 mg tablet 12/04 completed Not Available Not Available Not Available doxycycline hyclate 100 mg capsule 12/04 completed Not Available Not Available Not Available ofloxacin 0.3 % eye drops INSTILL 1-2 DRPS TO AFFECTED EYE(S) EVERY 2-4 HRS X 2 DAYS, THEN 1-2 DRPS 4 TIMES/DAY DAYS 3-7 07/14 completed Not Available Not Available Not Available hydrocodone 5 mg-acetamin ophen 325 mg tablet 12/04 completed Not Available Not Available Not Available sumatriptan 25 mg tablet 12/04 completed Not Available Not Available Not Available ondansetron HCl 4 mg tablet TAKE 1 TABLET BY MOUTH EVERY 8 HOURS NEEDED FOR NAUSEA 01/28 completed Not Available Not Available Not Available prednisone 20 mg tablet TAKE 1 TABLET BY MOUTH DAILY 07/14 completed Not Available Not Available Not Available permethrin 5 % topical cream 02/04 completed Not Available Not Available Not Available Diflucan 150 mg tablet Take 1 tablet by oral route for 1 day. 2024 active Not Available Not Available Not Avai lable sumatriptan 50 mg tablet 04/22 completed Not Available Not Available Not Available metronidazo le 500 mg tablet TAKE 1 TABLET BY MOUTH TWICE A DAY 2024 active Not Available Not Available Not Avai lable ciprofloxac in 500 mg tablet TAKE 1 TABLET BY MOUTH EVERY 12 HOURS FOR 5 DAYS 12/18 completed Not Available Not Available Not Available sulfamethox azole 800 mg-trimetho prim 160 mg tablet TAKE 1 TABLET BY MOUTH EVERY 12 HOURS 12/18 completed Not Available Not Available Not Available tramadol 50 mg tablet 12/04 completed Not Available Not Available Not Available triamcinolo ne acetonide 0.1 % topical cream 12/04 completed Not Available Not Available Not Available oxycodone-a cetaminophe n 5 mg-325 mg tablet TAKE 1 TABLET BY MOUTH EVERY 4 HOURS NEEDED FOR PAIN 12/18 completed Not Available Not Available Not Available citalopram 20 mg tablet 12/04 completed Not Available Not Available Not Available amitriptyli ne 25 mg tablet 02/04 completed Not Available Not Available Not Available lorazepam 0.5 mg tablet 12/09 completed Not Available Not Available Not Available triamcinolo ne acetonide 0.025 % topical cream APPLY TOPICALLY TO THE AFFECTED AREA THREE TIMES DAILY 07/14 completed Not Available Not Available Not Available ciprofloxac in 0.3 % eye drops 12/04 completed Not Available Not Available Not Available phenazopyri dine 100 mg tablet TAKE 1 TABLET BY MOUTH THREE TIMES DAILY FOR 3 DAYS NEEDED FOR PAIN 12/18 completed Not Available Not Available Not Available rizatriptan 10 mg disintegrat ing tablet TAKE 1 TAB ONCE NEEDED FOR MIGRAINE. MAY REPEAT IN 2 HOURS IF UNRESOLVE D. DON'T EXCEED 30MG/24HR S 03/26 completed Not Available Not Available Not Available cephalexin 500 mg capsule TAKE ONE CAPSULE BY MOUTH EVERY 12 HOURS 12/18 completed Not Available Not Available Not Available oseltamivir 75 mg capsule 12/04 completed Not Available Not Available Not Available polymyxin B sulfate 10,000 unit-trimet hoprim 1 mg/mL eye drops active Not Available Not Available Not Available docusate sodium 100 mg capsule TAKE ONE CAPSULE BY MOUTH TWICE DAILY 12/18 completed Not Available Not Available Not Available hydrochloro thiazide 25 mg tablet 12/09 completed Not Available Not Available Not Available metoprolol succinate ER 25 mg tablet,exte nded release 24 hr TAKE 1 TABLET BY MOUTH EVERY DAY 12/30 completed Not Available Not Available Not Available Promethegan 25 mg rectal suppository UNWRAP AND INSERT 1 SUPPOSITO RY RECTALLY EVERY 8 HOURS NEEDED FORNAUSEA AND VOMITING 12/18 completed Not Available Not Available Not Available ibuprofen 600 mg tablet 12/04 completed Not Available Not Available Not Available Midol Max St Menstrual 500 mg-60 mg-15 mg tablet Take 2 tablets every 6-8 hours by oral route as needed. 07/14 completed Not Available Not Available Not Available methylpredn isolone 4 mg tablets in a dose pack 12/09 completed Not Available Not Available Not Available ondansetron 4 mg disintegrat ing tablet DISSOLVE 1 TABLET IN MOUTH EVERY 6 HOURS NEEDED 07/14 completed Not Available Not Available Not Available amoxicillin 875 mg-potassiu m clavulanate 125 mg tablet 12/04 completed Not Available Not Available Not Available Sprintec (28) 0.25 mg-0.035 mg tablet 04/07 completed Not Available Not Available Not Available 07/11 (21) 1 mg-20 mcg tablet Take 1 PO QD 02/04 completed Not Available Not Available Not Available Junel FE 07/11 (28) 1 mg-20 mcg (21)/75 mg (7) tablet Take 1 tablet every day by oral route as directed. 04/07 completed Not Available Not Available Not Available topiramate 50 mg tablet Take 1 tablet twice a day by oral route for 30 days. 01/28 completed Not Available Not Available Not Available nitrofurant oin monohydrate /macrocryst als 100 mg capsule Take 1 capsule every 12 hours by oral route for 5 days. 07/14 completed Not Available Not Available Not Available BD Ultra-Fine Mini Pen Needle 31 gauge x 3/16 12/04 completed Not Available Not Available Not Available BD Ultra-Fine Short Pen Needle 31 gauge x 516 01/28 completed Not Available Not Available Not Available Lo Loestrin Fe 1 mg-10 mcg (24)/10 mcg (2) tablet 04/22 completed Not Available Not Available Not Available 28 mg iron-800 mcg tablet Take 1 tablet every day by oral route. 07/23 completed Not Available Not Available Not Available Victoza 3-Jake 0.6 mg/0.1 mL (18 mg/3 mL) subcutaneou s pen injector 12/04 completed Not Available Not Available Not Available Xulane 150 mcg-35 mcg/24 hr transdermal patch 12/04 completed Not Available Not Available Not Available Saxenda 3 mg/0.5 mL (18 mg/3 mL) subcutaneou s pen injector 01/28 completed Not Available Not Available Not Available Tri Femynor (28) 0.18 mg(7)/0.215 mg(7)/0.25 mg(7)-35 mcg tablet Take 1 tablet every day by oral route. 12/04 completed Not Available Not Available Not Available Ubrelvy 50 mg tablet 03/26 completed Not Available Not Available Not Available Zepbound 10 mg/0.5 mL subcutaneou s pen injector INJECT 1 SYRINGE SUBCUTANE OSLY ONCE A WEEK 07/14 completed Not Available Not Available Not Available Zepbound 5 mg/0.5 mL subcutaneou s pen injector active Not Available Not Available Not Available Zepbound 2.5 mg/0.5 mL subcutaneou s pen injector INJECT 2.5 MG ONCE A WEEK DIRECTED FOR 1 MONTH 07/14 completed Not Available Not Available Not Available Zepbound 7.5 mg/0.5 mL subcutaneou s pen injector INJECT 1 SYRINGE ONCE A WEEK 07/14 completed Not Available Not Available Not Available Vitals Date Recorded Body height Body mass index (BMI) Body weight Body temperature Respiratory rate Oxygen saturation Oxygen saturation in Arterial blood by Pulse oximetry Heart rate Systolic And Diastolic Provider Name and Address Organization Details Last Updated DateTime 162.56 cm 29.4 kg/m2 79149.0 9 g 97.1 [degF] 16 /min 99 % 99 % 65 /min 121/60 mm[Hg] Hannah Manriquez MA [facility] 11:15:49 Date Recorded Body height Body mass index (BMI) Body weight Heart rate Systolic And Diastolic Provider Name and Address Organization Details Last Updated DateTime 07/26/2024 162.56 cm 29.4 kg/m2 62988.3 g 68 /min 113/76 mm[Hg] KEMAR Espinoza [facility] 07/26/2024 10:40:48 Date Recorded Body height Body mass index (BMI) Body weight Systolic And Diastolic Provider Name and Address Organization Details Last Updated DateTime 09/16/2023 162.56 cm 31.9 kg/m2 25717.18 g 113/79 mm[Hg] Marybel Wills MA [facility] 09/16/2023 10:35:36 Date Recorded Body height Body mass index (BMI) Body weight Body temperature Respiratory rate Heart rate Oxygen saturation Oxygen saturation in Arterial blood by Pulse oximetry Systolic And Diastolic Provider Name and Address Organization Details Last Updated DateTime 162.56 cm 30.7 kg/m2 82111.7 3 g 97.5 [degF] 16 /min 74 /min 99 % 99 % 126/84 mm[Hg] Yue Quiñones [place] - [facility] 14:02:31 Date Recorded Body height Body mass index (BMI) Body weight Heart rate Systolic And Diastolic Provider Name and Address Organization Details Last Updated DateTime 01/21/2024 162.56 cm 28.5 kg/m2 74561.33 g 68 /min 127/80 mm[Hg] Kavita Dick [place] - [facility] 01/21/2024 10:25:43 Social History Question Answer Notes LastModified by Organizat ion Details LastModified Time Tobacco Smoking Status Never Smoker Berthadarshan Canas DIMITRIS garcia, [place] - [facility] 04/22/2016 10:56:03 Do You Have An Advance Directive? No Information n ot available 01/28/2022 How Many Years Have You Consumed Alcohol? 10 Information not available 01/28/2022 Are You Blind Or Do You Have Difficulty Seeing? No Information n ot available 07/14/2024 Is Blood Transfusion Acceptable In An Emergency? Yes Information not available 01/28/2022 What Is Your Level Of Caffeine Consumption? Occasional Information not available 07/14/2024 In The 14 Days Before Symptom Onset, Have You Had Close Contact With A Laboratory-confirm ed COVID-19 While That Case Was Ill? No Information n ot available 01/28/2022 In The 14 Days Before Symptom Onset, Have You Had Close Contact With A Person Who Is Under Investigation For COVID-19 While That Person Was Ill? No Information not available 01/28/2022 Have You Been To An Area Known To Be High Risk For COVID-19? No Information not available 01/28/2022 Are You Deaf Or Do You Have Serious Difficulty Hearing? No Information not available 07/14/2024 What Type Of Diet Are You Following? REGULAR Information n ot available 01/28/2022 What Is The Highest Grade Or Level Of School You Have Completed Or The Highest Degree You Have Received? [id number] Information not available 01/28/2022 Have There Been Any Changes To Your Family Or Social Situation? No Information no t available 01/28/2022 Are There Any Guns Present In Your Home? No Information not available 07/23/2023 What Was The Date Of Your Most Recent Tobacco Screening? 07/14/2024 Information not available 07/14/2024 How Many Children Do You Have? 0 Information not available 07/14/2024 Do You Have Any Pets? No Information not available 01/28/2022 Do You Use Protection During Sex? No Information not available 01/28/2022 What Is Your Relationship Status? Single Information not available 01/28/2022 Do You Use Your Seat Belt Or Car Seat Routinely? Yes Information not available 01/28/2022 Are You Sexually Active? Yes Information not available 01/28/2022 Do You Have Smoke And Carbon Monoxide Detectors In Your Home? Yes Information not available 01/28/2022 Are You Passively Exposed To Smoke? No Information no t available 01/28/2022 Do You Use Sunscreen Routinely? No Information not available 01/28/2022 Has Tobacco Cessation Counseling Been Provided? No Information not available 01/28/2022 Sex: Female Functional Status Question Answer Note LastModified by Organizat ion Details LastModified Time Do you use any illicit or recreational drugs? No Information not available 01/28/2022 Do you or have you ever used any other forms of tobacco or nicotine? No Information not available 10/22/2022 What is your level of alcohol consumption? Occasional Information not available 01/28/2022 Are you currently employed? Yes Information not available 01/28/2022 Are you able to care for yourself independently? 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 Occasional Information not available 01/28/2022 Mental Status Question Answer Note LastModified by Organization D etails LastModified Time Do you feel stressed (tense, restless, nervous, or anxious, or unable to sleep at night)? [id number] [facility] Information not available 01/28/2022 Family History Nothing Reported Notes:11/20/23 Medical History Condition Response Other N High Blood Pressure N Breast Cancer N Thyroid Problems N Kidney or Bladder Problems N GI Problems N Depression N Blood Clots N Lung Disease N Acne N Breast Problem N Eating Disorder N Anemia N Anesthesia Complications N Headaches/Migraines Y Anxiety Disorder N Diabetes N Ovarian Cancer N Muscle, Joint, or Bone Problems N Blood Transfusions N Seizures/Epilepsy N Polyps N Infertility N Acid Reflux (GERD) N Cancer N Abuse/Domestic Violence N Asthma N Endometriosis N High Cholesterol N Hepatitis N Liver Disease N Heart Disease N Pre-Eclampsia N Osteoporosis N Gynecological History Statement/Question Response Abnormal Pap Yes Flow Moderate Date of LMP 07/04/2024 On BCP's at Conception? N STIs/STDs Y HPV Vaccine N Duration of Flow (days) 6 Age at Menarche 10 Current Control Method Condoms Sexually Active? Y Menses Monthly Y Date of Last Pap Smear 04/08/2023 Sexual Problems? N LMP Approximate Desired Control Method Condoms Obstetrics History GPAL:G 1 P 0 0 1 0 Type Value Spontaneous 1 Living 0 Total 1 Immunizations Vaccine Type Date Status Note Provider Nam e and Address Organization Details Recorded Time Tdap 11/20/2021 completed SOFYA WU NP Attn: Accounting,[address] [place], [place], [address] [place] [address], [facility] [place] [place] 12/30/2021 10:44:58 Tdap 03/05/2019 completed SOFYA WU NP Attn: Accounting,[address] [place], [place], [address] [place] [address], [facility] [place] 07/23/2023 11:39:36 influenza, unspecified formulation 03/22/2018 completed SOFYA WU NP Attn: Accounting,[address] [place], [place], [address] [place] [address], [facility] [place] 02/05/2022 10:48:53 Tdap 11/05/2021 kevon WU NP Attn: Accounting,[address] [place], [address] [place] [address], [facility] [place] 02/05/2022 10:48:53 Influenza, split virus, quadrivalent, PF 03/28/2016 completed SOFYA WU NP Attn: Accounting,[address] [facility], [place], [address], [facility] [place] 02/05/2022 10:48:53 Influenza, split virus, quadrivalent, PF 07/06/2017 completed SOFYA WU NP Attn: Accounting,[address] [place], [address], [facility] [place] 07/23/2023 11:39:36 Influenza, split virus, quadrivalent, PF 03/09/2019 completed SOFYA WU NP Attn: Accounting,[address] [place], [address], [facility] [place] [place] 07/23/2023 11:39:36 Past Encounters Encounter ID Performer Location Encounter Start Date Encounter Closed Date Diagnosis/Indication Diagnosis SNOMED-CT Code Diagnosis ICD10 Code Diagnosis IMO Codes Diagnosis Note [id number] [place] [facility] Andie Francis ([place] [id number]) [address] [facility] [place] [address] 08/16/2015 11:38:23 08/16/2015 13:26:52 Gynecologic examination 98796674 Z01.419 Initial pr escription of oral contraception 594015803 Z30.583 [id number] [place] POLO Francis ([place] [address]) [address] [place] [address] 04/22/2016 10:44:14 04/22/2016 14:08:55 Vaginal discharge 301638585 N89.8 [id number] [place] POLO Francis ([place] [address]) [address] [facility] [place] [address] 05/21/2016 12:03:11 05/21/2016 13:06:57 Venereal disease screening 047440043 Z11.3 Vaginal discharge 212745 006 N89.8 [id number] [place] POLO Francis ([place] [address]) [address] [place] [address] 02/04/2017 09:28:48 02/04/2017 11:11:16 Gynecologic examination 73669122 Z01.419 Venereal d isease screening 367017243 Z11.3 Surveillan ce of oral contraception 070080389 Z30.41 [id number] [place] [facility] Andie Womenmichaela ([facility]) [address] [facility] [place] [address] 02/09/2017 11:42:35 02/10/2017 09:53:43 Polyuria 48979312 R35.8 Urinary tr act infectious disease 90692017 N39.0 [id number] [place] [facility] Andie Womenmichaela ([facility] 122) [address] [facility] [place] [address] 02/25/2017 13:56:17 02/26/2017 09:31:54 Abnormal cervical Papanicolaou smear 370452908 R87.659 [id number] MD [facility] ([facility]) [address] [facility] [place] [address] 05/13/2017 09:35:59 05/13/2017 11:05:09 [id number] MD Andie Nuñez 14 OB [address] [facility] [place] [address] 03/05/2018 15:26:16 03/08/2018 10:23:58 Venereal disease screening 494609643 Z11.3 [id number] MD Andie Nuñez 14 OB [address] [facility] [place] [address] 04/07/2018 15:13:24 04/12/2018 12:42:01 Gynecologic examination 71381946 Z01.419 CBE and pap smear perfomed Venereal d isease screening 959317985 Z11.3 [facility] care management 766219400 Z30.9 [id number] MD Andie Nuñez 14 OB [address] [facility] [place] [address] 04/27/2018 09:18:53 04/29/2018 15:31:10 Atypical squamous cells of undetermined significance on cervical Papanicolaou smear 686045072 R87.610 Perform colposcopy at next visit. HPV - Anabel n papillomavirus test positive 502744655 R87.931 [id number] MD Andie Nuñez 14 OB [address] [facility] [place] [address] 05/21/2018 10:32:24 05/21/2018 14:10:29 Atypical squamous cells of undetermined significance on cervical Papanicolaou smear 716339798 R87.610 HPV - Anabel n papillomavirus test positive 259974289 R87.001 [id number] MD Andie Nuñez 14 OB [address] [facility] [place] [address] 06/04/2018 10:41:12 06/04/2018 12:59:20 Cervical intraepithelial neoplasia grade 1 822463119 N87.0 Perform co-testing in 12 months. [id number] MD Andie Nuñez [address] [place] [address] [place] [address] 12/09/2018 11:39:28 12/10/2018 08:39:18 Possible 211456390 Z32.00 UPT positive. Serial hcg levels ordered. PT started on PNV and educated on importance of of folic acid to help prevent against NTD. Pt educated on importance of care and precaution s including nutrition and safe OTC medication use. Pt educated on warning signs and given ER precaution s. Follow up based on hcg results. pt notified to call office if issues occur and if severe go to er. History of depression 16 7254266 Z86.59 Pt recently on citalopram for mild depression . PT reports she has been off medication with out issues for last month. PHQ negative today. PT notified to notified us if she experience s any depression symptoms. pt verbalized understand ing. History of migraine 1614 38123 Z86.69 Pt was on sumatripta n in the past for her migraines without aura. Pt reports she has not taken it in over a month. PT denies any migraines or MARINA. Pt notified to tell PCP of . Pt educated on risks of sumatripta n in . pt verbalized understand ing. PT notified to call office if migraines or marina occur. [id number] MD Andie Nuñez [address] [place] [address] [place] [address] 02/01/2019 16:29:22 02/03/2019 11:43:28 Miscarriage 46958922 O03.9 [id number] MD Andie Nuñez 14 OB [address] [facility] [place] [address] 02/02/2019 14:01:31 02/03/2019 15:57:59 Miscarriage 42072452 O03.9 Will call patient after receiving results to discuss plan. [id number] MD Andie Nuñez 14 OB [address] [facility] [place] [address] 02/23/2019 16:53:01 02/24/2019 08:43:30 Reduced libido 9284551 R68.82 Postoperative visit 1836 52558 Z09 Contracept ion care management 274420815 Z30.9 [id number] MD Andie Nuñez 14 OB [address] [facility] [place] [address] 07/20/2019 10:22:43 07/21/2019 09:14:07 Venereal disease screening 133236091 Z11.3 [id number] Anaid Yo, SLEEP LAB TECHNOLOGIST- [facility] [place] [address] [place] [address] 03/09/2020 09:26:56 03/12/2020 14:39:19 Exposure to SARS-CoV-2 312559667 Z20.379 [id number] MD Andie Nuñez 14 OB [address] [facility] [place] [address] 12/18/2021 11:31:37 12/19/2021 07:59:39 High risk sexual behavior 884983048 Z72.51 STD Screening completed. Pt educated on std prevention . Pt declined pelvic exam for swab. urine sample completed. Pt reminded she is due for annual well women and Pap. Pt educated on importance of follow up and notified to schedule appointmen t [facility] [id number] Lilli Avery MD [facility] [address] [place] [address] 12/30/2021 09:49:46 01/01/2022 15:36:47 Adult health examination 598793582 Z00.00 - Discussed with patient findings, diagnoses, and prognosis. - Discussed plan of care including treatment options, risks, and benefits with patients. Patient expressed understand ing.- The following interventi ons were recommende d: heart healthy low-fat, low-sodium diet, ideal body weight, regular exercise, medication s compliance , and medical follow-up as noted. Hyperlipid emia screening 225447363 Z13.220 Diabetes m ellitus screening 226092086 Z13.1 Migraine without aura 56 100566 G43.009 - Keep a headache diary to see if you can determine what are your headache/m igraine triggers- Take medicine as directed for migraine prophylaxi s- Take breakthrou headache medicine as soon as you feel headache coming on- Lay in a dark room if possible and try to relax- Drink plenty of water, get appropriat e rest, try auto relaxation , avoid triggers if known [id number] Jorge Aquino MD [place] [address] OB [address] [facility] [address] Meng [address] [place] [address] 01/28/2022 09:02:32 02/11/2022 11:28:08 Gynecologic examination 34252723 Z01.419 CBE and pap smear performed Venereal d isease screening 553919592 Z11.3 [id number] Lilli Avery MD [facility] [address] [place] [address] 02/05/2022 10:36:15 02/13/2022 11:43:42 Overweight 581552790 E66.3 advised low fat, low cholestero l, low carb diet, regular exercise and weight reduction. Migraine without aura 56 409883 G43.009 - Keep a headache diary to see if you can determine what are your headache/m igraine triggers- Take medicine as directed for migraine prophylaxi s- Take breakthrou headache medicine as soon as you feel headache coming on- Lay in a dark room if possible and try to relax- Drink plenty of water, get appropriat e rest, try auto relaxation , avoid triggers if known [id number] Francisco Javier Best MD [facility] [address] [place] [address] 06/27/2022 09:18:21 07/01/2022 08:25:58 Migraine without aura 80769041 G43.009 - Keep a headache diary to see if you can determine what are your headache/m igraine triggers- Take medicine as directed for migraine prophylaxi s- Take breakthrou headache medicine as soon as you feel headache coming on- Lay in a dark room if possible and try to relax- Drink plenty of water, get appropriat e rest, try auto relaxation , avoid triggers if known Positive s creening for depression on PHQ-9 (Patient Health Questionnaire 9) 0147821618 92305 Z13.31 - Discussed symptoms of depression /anxiety as well as the different treatment types.- Encouraged psychother apy in adjunct with medication therapy,.- All questions and concerns were addressed. - Pt is to monitor symptoms and RTC sooner if symptoms are worsening or not improving. [id number] Francisco Javier Best MD [facility] [address] [place] [address] 07/29/2022 09:45:22 07/30/2022 09:53:27 Sore throat 150623107 J02.9 - Rapid strep pending- Use over-the-c ounter throat lozenges to soothe pain.- drink plenty of fluids, ( warm/hot teas, or soups may help decrease throat pain).- RTC with worsening symptoms [id number] Francisco Javier Best MD [facility] [address] [place] [address] 10/22/2022 09:27:43 10/23/2022 10:46:40 Obesity 794662314 E66.9 advised low fat, low cholestero l, low carb diet, regular exercise and weight reduction. Migraine without aura 56 583426 G43.009 - Keep a headache diary to see if you can determine what are your headache/m igraine triggers- Take medicine as directed for migraine prophylaxi s- Take breakthrou gh headache medicine as soon as you feel headache coming on- Lay in a dark room if possible and try to relax- Drink plenty of water, get appropriat e rest, try auto relaxation , avoid triggers if known Night sweats 89277452 R6 1 [id number] JONATAN BUSTOS MD [place] 14 IM [address] [facility] [address] [place] [address] 03/26/2023 14:24:26 04/08/2023 13:44:45 Vaginal discharge 475781342 N89.8 2 day hx of thick white discharge and vaginal irritation . 1 partner in past 6 mo but requests STI testing. Doesn't feel like this is a yeast infection. Family shanita nning education 110842402 Z30.02 Discussed hormonal vs nonhormona l BC and patient declines due to side effects in the past. Ok if she were to become . Will start taking vitamin. Will order rubella and varicella. Vaccine de clined by patient 2601982029 02 Z28.20 Declines flu shot.No past record of HPV vaccine. Offered to request vaccine records but patient declines. Would like to do her research. [facility] handout on HPV vaccine and HPV virus was given. [id number] Jorge Aquino MD [place] 14 OB [address] [facility] [address] [place] [address] 04/08/2023 09:34:35 04/15/2023 08:50:44 Vaginal odor 602963033 N89.8 Educated patient on vulvar hygiene and use condoms during sex. swab obtained and sent to lab. Routine gy necologic examination done 3935545996 9101 Z01.419 -Educated on the importance of SBE and awareness. -Discussed the importance of cervical cancer screenings -Educated osteoporos is prevention including calcium rich foods, weight bearing exercise.- Discussed the importance of exercise.- Nutrition discussed and the importance of a diet rich in fruits, vegetable, whole grains, and lean proteins.- Counseled regarding prevention of STD's and screening options, condom use and prevention .-Advised avoidance of tobacco, alcohol, and drugs.-Dis cussed sun safety and the importance of sunscreen. History of abnormal cervical Papanicolaou smear 145397946 Z87.42 Family shanita nning surveillance 253475196 Z30.09 Discussed contracept ion methods. Patient not interested in any methods other than condoms at this time. Patient aware of her increased risk for unplanned . Patient advised to do 400 mcg folic acid supplement to help prevent against NTD if unplanned occurs Body mass index 30+ - obesity 790682664 Z68.32 Pt educated on risks and importance of lifestyle modificati ons. Pt reports will continue to follow up with PCP. [id number] Francisco Javier Best MD [facility] [address] [place] [address] 07/23/2023 11:25:10 07/27/2023 09:49:52 Obesity 523883065 E66.9 advised low fat, low cholestero l, low carb diet, regular exercise and weight reduction. Migraine without aura 56 800184 G43.009 - Dr Das following and managing care [id number] JOHN [facility] OB [address] [facility] [place] [address] 09/16/2023 10:15:48 09/17/2023 09:14:53 Vaginal irritation 541555960 N89.8 Nuswab done and sent to lab. Counseled on STD prevention and condom use. Counseled on yeast and BV prevention . Will follow up pending lab results. [id number] MD Andie Hernandez [address] [place] [address] [place] [address] 11/20/2023 13:41:32 11/23/2023 14:42:19 Obesity 066379106 E66.9 - BMI- 30.7- encouraged to perform 30 to 60 minutes of moderate-i ntensity aerobic activity on most days of the week (at least 150 minutes of moderate-i ntensity aerobic exercise per week; no more than two consecutiv e days without exercise- exercise with free weights or weight machines) at least twice per week Venereal d isease screening 896146666 Z11.3 - asymptomat ic screen- unprotecte d intercours e w 1 male partner w unknown STD status- Discussed barrier protection to prevent exposure to STDs Abnormal c ervical Papanicolaou smear 178326497 R87.619 - records indicate HPV+ LSIL 03/2018 - colposcopy biopsy- Part A: CERVICAL BIOPSY AT 12:00: LOW-GRADE SQUAMOUS INTRAEPITH ELIAL LESION (RAH 1). CERVICAL BIOPSY AT 6:00:LOW-G RADE SQUAMOUS INTRAEPITH ELIAL LESION (RAH 1).- Patient will follow up w her vocational rehabilitation administrator provider [id number] MD Andie Herrera 14 OB [address] [facility] [place] [address] 01/21/2024 10:13:44 02/03/2024 12:15:06 Dysmenorrhea 649465265 N94.6 Pt instructed on ways to help manage menstrual cramps. May use 600 mg ibuprofen every 6 hours with food, may use heating pads, warm baths and light exercise to help manage pain. Irregular periods 165100 07 N92.6 Pt encouraged to keep period tracker for next several months. Educated on things that can cause cycle to become irregular including but not limited to stress, exercise, weight loss, weight gain, major life changes etc. Pt verbalized understand ing. Will follow up ias needed if pt decides to try ocp for management . [id number] Francisco Javier Best MD [facility] [address] [place] [address] 07/14/2024 10:41:44 08/18/2024 14:52:53 Migraine 42305102 G43.909 -Patient reports her last flare was last week-Patie nt reports she has appointmen t with neuro in next 2 weeks-[employer] filled out patient's FMLA paperwork as previously filled out by Sofya MONROE-Continu e current therapy-Pa tient to follow up with PCP [id number] Anival Moore MD [place] 14 OB [address] [facility] [address] [place] [address] 07/26/2024 10:22:19 08/04/2024 10:45:05 Vaginal discharge 190312303 N89.8 Nuswab done and sent to lab. Counseled on STD prevention and condom use. Counseled on yeast and BV prevention . Will follow up pending lab results. Health Concerns Section Related Observation LastModified by Organization Detai ls LastModified Time None Recorded Concern Status LastModified by Organization Details LastModified Time None Recorded Advance Directives Directive N: Payers Insurance Date Sequence Insurance Name Policy Number Policy Baeza Covered Member ID Baeza Member ID Guarantor Name 03/26/2023 1 [employer] - DOS ON OR AFTER 20 - [facility] BENEFITS PLAN (PPO) Jeniffer Quevedo [id number] Jeniffer Quevedo 08/04/2024 1 [employer] - [employer] - OPEN ACCESS Jeniffer Quevedo [id number] Jeniffer Quevedo 03/26/2023 1 [employer] - DOS PRIOR TO 20 - [facility] BENEFITS PLAN [id number] Jeniffer Quevedo [id number] Jeniffer Quevedo Notes Date Note Type Note Provider Name and Address Organization Details Recorded Time 09/16/2023 text/html Annual GYNReport ed by PatientHistoryFor history, patient reportsno gynecologic complaints.Genitourina ry symptomsFor vagina, patient reportsfoul-smelling. For menstrual cycle, patient reportsnormal menses. For urinary symptoms, patient reportsno hematuriaandno incontinence. For vulva, patient reportsno genital lesion.Breast symptomsFor breast, patient reportsno breast pain,no breast lump, andno nipple discharge.Contraceptio nFor current contraception, patient reportssatisfied with current contraceptionandcondom s.Endocrine symptomsFor sexual complaints, patient reportsno sexual complaints,no pain during intercourse, andnormal libido. For menopausal symptoms, patient reportsno menopausal symptomsandnormal vaginal lubrication.Psychologi rizwana symptomsFor psychological symptoms, patient reportsno depression,no anxiety, andno pmdd.Preventative measuresFor preventive measures, patient reportsencourage self breast examination,encourage regular exercise,encourage no tobacco use,encourage regular mammograms starting age 40, andhistory of abnormal pap smear/cervical dysplasia.ROS as noted in the HPI 33 yo here for vaginal irritation- went [facility] last week, used new soap, vaginal irritation with odor and discharge since thursday JOHN Mejia- Attn: Accounting,[address] [facility], [place], [address], [facility] 09/16/2023 10:47:19 11/20/2023 text/html Patient is a 33 y/o f arrived to clinic with concern for unprotected intercourse 2 weeks ago with 1 male partner. She denies any discharge itching or rash. unknown n partners status, it is her boyfriend. Denies prior STD. H/O- john infection x 2- Needs PAP 01/2024- LSIL 2018 HPV + Francisco Javier Best MD Attn: Accounting,[address] [place], [address], [facility] 11/21/2023 15:02:29 01/21/2024 text/html Annual GYNReport ed by PatientHistoryFor history, patient reportsno gynecologic complaints.Genitourina ry symptomsFor menstrual cycle, patient reportsnormal menses. For urinary symptoms, patient reportsno hematuriaandno incontinence. For vulva, patient reportsno genital lesion. For vagina, patient reportsnormal vaginal discharge.Breast symptomsFor breast, patient reportsno breast pain,no breast lump, andno nipple discharge.Contraceptio nFor current contraception, patient reportssatisfied with current contraceptionandcondom s.Endocrine symptomsFor sexual complaints, patient reportsno sexual complaints,no pain during intercourse, andnormal libido. For menopausal symptoms, patient reportsno menopausal symptomsandnormal vaginal lubrication.Psychologi rizwana symptomsFor psychological symptoms, patient reportsno depression,no anxiety, andno pmdd.Preventative measuresFor preventive measures, patient reportsencourage self breast examination,encourage regular exercise,encourage no tobacco use,encourage regular mammograms starting age 40, andhistory of abnormal pap smear/cervical dysplasia.ROS as noted in the HPI 33 yo here for irregular cycle- recently lost over 20 pounds on zepbound- hx migraines, obesity- - ASCUS +HPV/Colpo done on 05/21/18 [facility] CIN1/8-16-17 LGSIL- last pap wnl 04/08/23 SAMRA Mejia Attn: Accounting,[address] [facility], [place], [address], [facility] - [facility] 01/21/2024 10:40:35 07/14/2024 text/html Patient presents to the clinic to fill out [facility] paperwork. Patient is established with Sofya MONROE for primary care. Patient's past medical history includes: migraines and colposcopy. -Denies having any acute concerns. LANE LEONE Attn: Accounting,[address] [facility], [place], [address], [place] - SIF 08/17/2024 14:27:15 07/26/2024 text/html Annual GYNReport ed by PatientHistoryFor history, patient reportsno gynecologic complaints.Genitourina ry symptomsFor menstrual cycle, patient reportsnormal menses. For urinary symptoms, patient reportsno hematuriaandno incontinence. For vulva, patient reportsno genital lesion. For vagina, patient reportsnormal vaginal discharge.Breast symptomsFor breast, patient reportsno breast pain,no breast lump, andno nipple discharge.Contraceptio nFor current contraception, patient reportssatisfied with current contraceptionandcondom s.Endocrine symptomsFor sexual complaints, patient reportsno sexual complaints,no pain during intercourse, andnormal libido. For menopausal symptoms, patient reportsno menopausal symptomsandnormal vaginal lubrication.Psychologi rizwana symptomsFor psychological symptoms, patient reportsno depression,no anxiety, andno pmdd.Preventative measuresFor preventive measures, patient reportsencourage self breast examination,encourage regular exercise,encourage no tobacco use,encourage regular mammograms starting age 40, andhistory of abnormal pap smear/cervical dysplasia.ROS as noted in the HPI 33 yo here for vaginal discharge with odor- hx migraines, obesity- - ASCUS +HPV/Colpo done on 05/21/18 [facility] CIN1/8-16-17 LGSIL- last pap wnl 04/08/23 JOHN Mejia- Attn: Accounting,[address] [facility], [place], [address], [place] - [place] 07/26/2024 11:01:46 OBGyn Episode No OBEpisode recorded.
--- OUTSIDE RECORDS SUMMARY | 2025-04-03 18:07 | XMS_ITS | Patient Health Record ---
Author Organization [facility] Address [address] [place] [address] Care Team Providers Care Technical Applications Specialist Name Role Phone Migration, Provider Unavailable Unavailable Reason For Referral No Information Encounters Encounter Location Date Provider Diagnosis [facility] [address] [place], [place] [id number] 09/17/2024 Prov ider Migration [facility] [address] [place], [place] [phone] 09/18/2024 Prov ider Migration Plan Of Treatment No Information
--- OUTSIDE RECORDS SUMMARY | 2025-04-03 18:07 | XMS_ITS | Patient Health Record ---
Author Organization [facility] Address [address] [facility] [address] [place] [address] Care Team Providers Care Network Pricing Consultant Name Role Phone Juvencio Banegas Unavailable [phone] Reason For Referral No Information Medications Medication SIG (Take, Route, Frequency, Duration) Notes Start Date End Date Status LORazepam 0.5 MG Tablet Oral Active 07/11 1-20 MG-MCG Tablet Oral Active Triamcinolone Acetonide 0.1% Cream External Active methylPREDNISolone 4 MG Tabl et Therapy Pack Oral Active Plan Of Treatment No Information
[2025-04-03 18:10] VITALS: BP 131/76; PULSE 76; RESP 20; TEMP 36.7; O2SAT 100
--- NOTE | 2025-04-03 18:35 | ED.SKABFB ---
HPI - Skin/Abscess/Foreign Bdy General Chief complaint: Skin/Abscess/Foreign Body Stated complaint: rash on back of neck Time Seen by Provider: 04/03/25 18:36 Source: patient, RN notes reviewed and old records reviewed Mode of arrival: ambulatory Limitations: no limitations History of Present Illness HPI narrative: 34 year olf female who presents to [facility] for rehabilitation care with complaints of rash on the back of her neck starting today. Patient reports that she applied a scented oil to the back of her neck which she has used before an it felt like some burning to the area after she applied oil. This morning she states that she noted skin on the back of her neck feeling scabby reports no itching of area. Patient does have history of eczema and wonders if it is a flare of her eczema. Patient reports that she has washed area with antibacterial soap. MD complaint: rash Onset (ago): day(s) (this morning) Location: neck (posterior) Severity: mild Treatments prior to arrival: other (washed with soap and water) Related Data Allergies Allergy/AdvReac Type Severity Reaction Status Date / Time No Known Allergies Allergy Verified 04/03/25 18:23 Review of Systems Review of Systems: CONSTITUTIONAL: Denies fever, chills, or sweats. CARDIOVASCULAR: Denies chest pain, palpitations, or edema. RESPIRATORY: Denies cough or dyspnea. SKIN: Reports rash to the back of her neck feels scaly and scabby MUSCULOSKELETAL: Denies joint pain or myalgia. NEUROLOGIC: Denies headache, numbness, or weakness. All systems reviewed & are unremarkable except as noted in HPI and below PMFSH Past Medical History Medical History Eczema Hx of migraines No pertinent past medical history Surgical History Surgical History No history of previous surgery No history of previous surgery Family History Family History Other No acute medical problems Social History Social History Smoking status: Never smoker Alcohol intake: never Alcohol use details: social Substance use: never Living arrangements: with family Gender identity (if verbalized by the patient): Female Comments At time of signature, agree with nursing past medical, surgical, social and family history. There is no relevant family history pertinent to the presenting complaint Exam Narrative: GENERAL: Well-appearing, well-nourished, and in no acute distress. HEAD: Normocephalic, atraumatic. EYES: PERRLA, conjunctivae clear, and EOMI. ENT: Mucous membranes moist. Oropharynx without edema, erythema or lesions. NECK: Supple. No lymphadenopathy CHEST: Clear to auscultation. No respiratory distress. no cough SAO2 100% on room air HEART: Regular rate and rhythm. SKIN: Warm, dry.? Patch if minimal raised scaly skin to the back of neck no pustules or vesicles reports no itch to area NEURO:? Alert and oriented x3. PSYCH: Normal mood and affect Course Course Emergency Course: Patient is aware of diagnosis, understands and agrees to treatment plan.? Anticipatory guidance given.? Patient agrees to follow-up as directed and is aware of reasons to seek care at the emergency department. Portions of this record may have been created with voice recognition software Level of Care: Express Care Visit Vital Signs Vital signs: Vital Signs Temperature 36.7 C 04/03/25 18:10 Pulse Rate 76 04/03/25 18:10 Respiratory Rate 20 04/03/25 18:10 Blood Pressure 131/76 04/03/25 18:10 Pulse Oximetry 100 04/03/25 18:10 Oxygen Delivery Room Air 04/03/25 18:10 Temperature 36.7 C 04/03/25 18:10 Pulse Rate 76 04/03/25 18:10 Respiratory Rate 20 04/03/25 18:10 Blood Pressure 131/76 04/03/25 18:10 Pulse Oximetry 100 04/03/25 18:10 Oxygen Delivery Room Air 04/03/25 18:10 Reviewed MDM - Skin/Abscess/Foreign Bdy MDM Narrative Medical decision making narrative: Does not appear at this time to be erythema multiforme, bullous, SJS, TEN; no evidence at this time to suggest RMSF, endocarditis or Lyme disease; patient looks well, nontoxic and is tolerating oral intake; no neurologic signs or symptoms; no headache, photophobia or neck pain; afebrile; appropriate for initial outpatient treatment; discussed the importance of follow-up, patient agrees; question, viral exanthema, contact dermatitis, allergic dermatitis, eczema, urticaria. No soft palate or uvula edema, no tongue, lip edema or other mucosal involvement, no respiratory compromise, no stridor, no wheezing, no wheezing, no history of syncope, no hypotension, no nausea, vomiting, or diarrhea.? Instructed patient to go to nearest ER immediately for any worsening symptoms including but not limited to: fever, spreading rash, pain, sore throat, headache, dizziness, chest pain, trouble breathing, or any symptoms concerning to the patient. Differential Diagnosis Differential diagnosis: Likely viral exanthem, cellulitis, eczema and contact dermatitis Medical Records Attestation: I reviewed the patient's medical records. Critical Care Time Critical Care Time Critical Care Time: No Discharge Plan Discharge Clinical Impression: Eczema Qualifiers: Eczema type: unspecified Qualified Code(s): L30.9 - Dermatitis, unspecified Patient Disposition: Home Condition: Stable Instructions: Antibiotic Form, Eczema (ED) Additional Instructions: cleanse rash area on neck twice daily rinse and apply triamcinolone ointment 2 X day watch for any infection--redness, swelling, drainage Tylenol or Ibuprofen for any fever or pain follow up with PCP in 7-10 days for a wound check recheck if develop fever, chills, increasing symptom Go to the ER if your symptoms become worse of if ANY new symptoms develop If your symptoms persist, change or worsen significantly before you can contact your personal physician then please, without delay, go to the emergency department for further evaluation. Follow-up with PCP in 7-10 days or sooner if needed Follow up with PCP soon in regards to your blood pressure which is elevated above threshold for referral. Blood pressure above 120/80 may indicate pre-hypertension. 131/76 Follow-up if increased symptoms Patient Language: Scottish Prescriptions: New triamcinolone acetonide 0.1 % ointment 1 applic topical BID Qty: 80 0RF Follow-up/Referrals: PHYSICIAN NOT ON STAFF,NONSTAFF [Primary Care Provider] Time of Disposition: 18:48 Quality John Coma Scale Eyes: Open Verbal: Oriented and Alert Motor: Follows Commands John Coma Total Score: 15
== END 2025-04-03 18:50 | disposition home or self-care (01) ==
PROVIDERS: Emergency Provider Registered Nurse
DX: L30.9 Dermatitis, unspecified (principal)
CPT/HCPCS: 99213; G0463